=== PATIENT | female | born 1930 | race Caucasian/White ===

== ENCOUNTER 2017-09-01 17:12 | Observation (INO) ==
[2017-09-01] MEDS ORDERED: Lidocaine 1% 20 ML MDV INFILT STA (17:19)
--- NOTE | 2017-09-01 17:22 | Emergency Department Note ---
Disposition Clinical Impression: Fracture of wrist Qualifiers: Encounter type: initial encounter Fracture type: closed Laterality: right Qualified Code(s): S62.101A - Fracture of unspecified carpal bone, right wrist, initial encounter for closed fracture Fall Qualifiers: Encounter type: initial encounter Qualified Code(s): W19.XXXA - Unspecified fall, initial encounter Disposition: Admitted As Inpatient Condition: Fair Referrals: Juan Carlos Hurst DO [Primary Care Provider] - Time of Disposition: 19:13 Extremity Problem HPI - General Stated complaint: fall/fracture Time Seen by Provider: 09/01/17 17:18 Source: patient Mode of arrival: ambulatory Limitations: no limitations Nursing Notes Reviewed: Yes Vital Signs Reviewed: Yes - History of Present Illness HPI Narrative: Patient is an 87-year-old female who presents to [facility] ED with a chief complaint of right distal radius fracture status post fall. States she has bad knees and Parkinson's so she mistepped and fell at around 1: 30 this afternoon. Denies loss of consciousness. No blood thinning medications none. Patient has pain in the right shoulder as well as right wrist. She has a confirmed Colles' fracture that was done at [place] emergency department. There physician spoke with the on-call orthopedic surgeon Dr. Betancur who recommended that this wrist be reduced. She was transferred here for reduction of the fracture. Pt Subjective Complaint: extremity pain, extremity swelling Onset (ago): hour(s) Injury Location: right, upper extremity Pain Scale: 8 Quality: aching Radiation: none Improves with: nothing Worsens with: range of motion, palpation Associated symptoms: Denies: chest pain, shortness of breath, abdominal pain - Related Data Home Medications Medication Instructions Recorded Confirmed B12/Levomefolate Calcium/B-6 1 each PO DAILY 03/12/15 09/01/17 [Foltx Tablet] Cranberry 1,000 mg PO DAILY 03/12/15 09/01/17 Gabapentin [Neurontin] 300 mg PO HS 03/12/15 09/01/17 Losartan [Cozaar] 50 mg PO DAILY 03/12/15 09/01/17 Omeprazole [PriLOSEC] 20 mg PO DAILY 03/12/15 09/01/17 Primidone [Mysoline] 50 mg PO HS 03/12/15 09/01/17 Sertraline [Zoloft] 100 mg PO DAILY 03/12/15 09/01/17 Vitamin D3/Folic Acid [Ortho D 1 each PO DAILY 03/12/15 09/01/17 3,775 Unit-1 mg Cap] Buspirone HCl [Buspar] 5 mg PO BID 02/17/16 09/01/17 Carbidopa/Levodopa 25/100 [Sinemet 1 each PO TID 02/17/16 09/01/17 25/100] Raloxifene [Evista] 60 mg PO DAILY 02/17/16 09/01/17 Albuterol Sulfate [Albuterol 09/01/17 Inhaler] Ferrous Sulfate [Iron] 325 mg PO DAILY 09/01/17 09/01/17 Allergies Allergy/AdvReac Type Severity Reaction Status Date / Time clarithromycin Allergy Unknown See Verified 08/30/16 11:32 Comments propoxyphene [From Darvon] Allergy Hives Verified 08/30/16 11:32 aspirin [ASA] AdvReac Heartburn Verified 08/30/16 11:32 cephalexin [From Keflex] AdvReac Hives Verified 08/30/16 11:32 dextran 40 AdvReac Rash Verified 09/01/17 14:12 fluoxetine [From Prozac] AdvReac Numbness Verified 08/30/16 11:32 guaifenesin [From Humibid] AdvReac Hives Verified 08/30/16 11:32 All systems ED: reviewed and negative except as stated. Past Medical History - Past Medical History Attestation: Yes The following information was validated with the patient. Source: patient Medical history: Reports: arthritis, CVA, GERD, hypertension, other (Parkinson's ) Surgical history: Reports: breast surgery (Right breast lumpectomy), cancer surgery (Skin cancer excision), colostomy (For diverticulosis with primary reanastomosis) Psychiatric history: Reports: anxiety, depression MAKE UP GIRL history: Reports: no MAKE UP GIRL history - Social History Smoking Status: Never smoker Smokeless Tobacco Status: No Alcohol use: Reports: none Drug use: Reports: none Physical Exam - General Limitations: no limitations General appearance: alert, in no apparent distress - Head Head exam: atraumatic, normocephalic, normal inspection - Eye Eye exam: Present: normal appearance, PERRL, EOMI - ENT ENT exam: normal exam, normal oropharynx, mucous membranes moist - Neck Neck exam: Present: normal inspection, full ROM, trachea midline - Chest Chest inspection: Present: normal inspection, symmetric chest wall rise - Respiratory Respiratory exam: Present: normal lung sounds bilaterally - Cardiovascular Cardiovascular exam: Present: regular rate, normal rhythm, normal heart sounds - Abdominal Exam Abdominal exam: Present: soft, Non-Tender. Absent: tenderness, distention, guarding, rebound, rigidity - Expanded Upper Extremity Exam Shoulder exam: Present: tenderness Arm exam: Present: tenderness (Tenderness to the right upper arm) Forearm/Wrist exam: Present: tenderness, swelling, ecchymosis, deformity Vascular exam: Normal: capillary refill, radial pulse - Back Exam Back exam: Absent: vertebral tenderness - Neurological Exam Neurological exam: Present: alert, oriented X3 - Psychiatric Psychiatric exam: Present: normal affect, normal mood - Skin Skin exam: Present: warm, dry, intact, normal color Course Course Narrative: Patient seen and examined. Right upper extremity Marycarmen's fracture. A hematoma block was performed on the right dorsal surface of the wrist. Patient tolerated procedure well. There was good aspiration of hematoma blood and approximately 8 mL of lidocaine was infused. We will get postreduction x-ray as well as place a sugar tong splint. - Reevaluation(s) Reevaluation #1: Postreduction x-rays still show a comminuted intra-articular distal radius fracture. Discussed with Dr. Mckenna who plans to do surgery on her soon. I recommended follow-up outpatient initially. However when discussing with the patient, she requires a walker to steady herself due to her Parkinson's and without use of her right arm, there is worried that she is unsteady and will fall again. Discussed with Dr. Mckenna again who states he will take her to the OR tomorrow. He would like a CT of the wrist for operative planning. This has been ordered. We will also get preop labs/EKG. We will admit to hospitalist service. Time: 19:05 Vital Signs Temperature 97.8 F 09/01/17 17:29 Pulse Rate 72 09/01/17 17:29 Respiratory Rate 16 09/01/17 17:29 Blood Pressure 113/63 09/01/17 17:29 O2 Sat by Pulse Oximetry 95 09/01/17 17:29 Temperature 97.8 F 09/01/17 17:29 Pulse Rate 67 09/01/17 18:31 Respiratory Rate 16 09/01/17 18:31 Blood Pressure 110/56 09/01/17 18:31 O2 Sat by Pulse Oximetry 95 09/01/17 18:31 Oxygen Delivery Oxygen Delivery Room Air Procedures - Orthopedic Fracture Reduction Fracture #1 Consent Obtained: verbal consent Time Out Performed: Yes Side: right Fracture Reduction Location: radius ASA Classification: CLASS II-Mild systemic disease Analgesia: hematoma block Technique: direct manipulation Post Reduction X-rays Demonstrate: anatomical reduction Post-reduction neuro exam: intact, no change Post-reduction vascular exam: intact, no change Splint Applied: Yes Patient Tolerated Procedure: well, no complications - Orthopedic Splinting/Casting Injury #1 Side: right Upper Extremity Injury Location: forearm Upper Extremity Immobilizer: sugar tong splint Additional Comments: good capillary refill following splint placement. Extremity Problem, Nontraumati - Medical Records Medical records reviewed: Yes I reviewed the patient's medical records. - Radiology Data Radiology results reviewed: Yes I reviewed the patient's radiology results. Shoulder X-Ray 09/01/17 17:56 IMPRESSION: 1. Comminuted intra-articular fracture involving the base of the radius with dorsal angulation and translation of the fracture fragments. There is moderate regional soft tissue swelling. 2. Probable degenerative appearance in the medial portion of the right humeral neck; however, subtle impacted injury is not excluded. Osteopenia somewhat limits sensitivity. D/ / Panda Garibay / Panda Garibay Interpreting Provider: Panda Garibay Wrist X-Ray 09/01/17 17:56 IMPRESSION: 1. Comminuted intra-articular fracture involving the base of the radius with dorsal angulation and translation of the fracture fragments. There is moderate regional soft tissue swelling. 2. Probable degenerative appearance in the medial portion of the right humeral neck; however, subtle impacted injury is not excluded. Osteopenia somewhat limits sensitivity. D/ / Panda Garibay / Panda Garibay Interpreting Provider: Panda Garibay Cervical Spine CT 09/01/17 17:57 IMPRESSION: Small right scalp hematoma. No underlying skull vera fracture or acute intracranial abnormality. Multilevel degenerative changes in the cervical spine. No acute osseous abnormality. D/ / Alejandra Wyatt MD / Alejandra Wyatt MD Interpreting Provider: Alejandra Wyatt MD Head CT 09/01/17 17:57 IMPRESSION: Small right scalp hematoma. No underlying skull vera fracture or acute intracranial abnormality. Multilevel degenerative changes in the cervical spine. No acute osseous abnormality. D/ / Alejandra Wyatt MD / Alejandra Wyatt MD Interpreting Provider: Alejandra Wyatt MD - EKG Data EKG attestation: Yes I reviewed and interpreted this EKG. EKG results narrative: EKG done at 1850 shows normal sinus rhythm with a rate of [address] elevation or depression. Normal axis.
--- NOTE | 2017-09-01 18:53 | Emergency Department Note ---
Disposition Clinical Impression: Fracture of wrist Qualifiers: Encounter type: initial encounter Fracture type: closed Laterality: right Qualified Code(s): S62.101A - Fracture of unspecified carpal bone, right wrist, initial encounter for closed fracture Fall Qualifiers: Encounter type: initial encounter Qualified Code(s): W19.XXXA - Unspecified fall, initial encounter Disposition: Admitted As Inpatient Condition: Fair Referrals: Juan Carlos Hurst DO [Non-Partnered Physician] - Fall HPI - General Chief Complaint: ED Fall Stated Complaint: fall/fracture Time Seen by Provider: 09/01/17 17:18 Source: patient Mode of arrival: ambulatory Limitations: no limitations Nursing Notes Reviewed: Yes Vital Signs Reviewed: Yes - Related Data Home Medications Medication Instructions Recorded Confirmed B12/Levomefolate Calcium/B-6 1 each PO DAILY 03/12/15 09/01/17 [Foltx Tablet] Cranberry 1,000 mg PO DAILY 03/12/15 09/01/17 Gabapentin [Neurontin] 300 mg PO HS 03/12/15 09/01/17 Losartan [Cozaar] 50 mg PO DAILY 03/12/15 09/01/17 Omeprazole [PriLOSEC] 20 mg PO DAILY 03/12/15 09/01/17 Primidone [Mysoline] 50 mg PO HS 03/12/15 09/01/17 Sertraline [Zoloft] 100 mg PO DAILY 03/12/15 09/01/17 Vitamin D3/Folic Acid [Ortho D 1 each PO DAILY 03/12/15 09/01/17 3,775 Unit-1 mg Cap] Buspirone HCl [Buspar] 5 mg PO BID 02/17/16 09/01/17 Carbidopa/Levodopa 25/100 [Sinemet 1 each PO TID 02/17/16 09/01/17 25/100] Raloxifene [Evista] 60 mg PO DAILY 02/17/16 09/01/17 Albuterol Sulfate [Albuterol 09/01/17 Inhaler] Ferrous Sulfate [Iron] 325 mg PO DAILY 09/01/17 09/01/17 Allergies Allergy/AdvReac Type Severity Reaction Status Date / Time clarithromycin Allergy Unknown See Verified 08/30/16 11:32 Comments propoxyphene [From Darvon] Allergy Hives Verified 08/30/16 11:32 aspirin [ASA] AdvReac Heartburn Verified 08/30/16 11:32 cephalexin [From Keflex] AdvReac Hives Verified 08/30/16 11:32 dextran 40 AdvReac Rash Verified 09/01/17 14:12 fluoxetine [From Prozac] AdvReac Numbness Verified 08/30/16 11:32 guaifenesin [From Humibid] AdvReac Hives Verified 08/30/16 11:32 Fall PMH - Past Medical History Medical history: Reports: arthritis, CVA, GERD, hypertension, other (Parkinson's ) Surgical history: Reports: breast surgery (Right breast lumpectomy), cancer surgery (Skin cancer excision), colostomy (For diverticulosis with primary reanastomosis) Psychiatric history: Reports: anxiety, depression MACHINE FILLER SERVICER 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 - Social History Smoking Status: Never smoker Alcohol use: Reports: none Drug use: Reports: none Physical Exam - General Limitations: no limitations General appearance: alert, in no apparent distress Course Vital Signs Temperature 97.8 F 09/01/17 17:29 Pulse Rate 72 09/01/17 17:29 Respiratory Rate 16 09/01/17 17:29 Blood Pressure 113/63 09/01/17 17:29 O2 Sat by Pulse Oximetry 95 09/01/17 17:29 Temperature 97.8 F 09/01/17 17:29 Pulse Rate 67 09/01/17 18:31 Respiratory Rate 16 09/01/17 18:31 Blood Pressure 110/56 09/01/17 18:31 O2 Sat by Pulse Oximetry 95 09/01/17 18:31 Oxygen Delivery Oxygen Delivery Room Air Attestation Statement - Attestation Attestation: I, Nico Riggs, examined this patient and my medical decision-making was reviewed with the DOUGH PANNER/PA/Advanced Practice Nurse/Resident Physician. I agree with the documented findings, disposition and treatment plan as described except to the extent set forth below. 87-year-old female presents emergency Department with concerns of pain to the right wrist after fall. Patient states she has a history of Parkinson's, lost her balance that she was ambulating to the bathroom and fell striking her right outstretched hand. Patient also has pain to the right shoulder, right hip right knee. Patient was initially evaluated at [place] emergency department, x- ray of the right wrist showed a dorsally displaced distal radial fracture. The emergency physician there felt uncomfortable perform a hematoma block and thus sent her to the emergency department for further care and evaluation at [facility]. Hematoma block was performed and fracture was reduced after a discussion of risks and benefits with the patient and verbal consent obtained. Reviewing the note from the previous visit she did not receive a head CT, she is unable to give a good history regarding the fall. She also had pain on the right shoulder with our reevaluation. X-ray of the shoulder does not show acute fracture of the humerus. CT of the head and neck was negative for acute fracture or intracranial hemorrhage. Patient will be admitted to the hospital for further care and evaluation of her radial fracture as she will have increased difficulty with ambulation at home, lives with her alone for with the hospital. I spoke with Dr. Betancur who is comfortable as plan of action. She will likely receive surgery tomorrow and should be placed on nothing by mouth status after midnight.
[2017-09-01 19:34] LABS: Basophils # 0.1 K/mcL (0.0-0.2); Basophils % 0.5 %; Eosinophils # 0.1 K/mcL (0.0-0.6); Hematocrit 31.9 % (35.3-44.9); Hemoglobin 10.2 g/dL (11.5-15.4); Immature Granulocytes % 0.8 % (0-4); Lymphocytes # 1.2 K/mcL (0.6-4.6); Lymphocytes % 10.9 %; Mean Corpuscular Hemoglobin 30.4 pg (28.0-33.3); Mean Corpuscular Volume 94.9 fL (83.0-100.0); Mean Platelet Volume 11.2 fL (9.4-12.4); Monocytes # 0.7 K/mcL (0.0-1.3); Monocytes % 6.3 %; Neutrophils # 8.7 K/mcL (1.6-8.9); Platelet Count 130 K/mcL (140-400); Red Blood Count 3.36 M/mcL (3.82-4.97); Red Cell Distribution Width 14.5 % (11.5-14.5); Segmented Neutrophils % 80.5 %
[2017-09-01 19:55] LABS: Calcium 9.1 mg/dL (8.6-10.3); Potassium 5.5 mEq/L (3.5-5.1)
[2017-09-01 20:57] LABS: Prothrombin Time 10.7 Seconds (9.4-12.1)
[2017-09-01] MEDS ORDERED: Naloxone 0.4 MG/ML INJ IVP PRN (20:57)
[2017-09-01] MEDS ORDERED: Acetaminophen 325 MG TABLET PO PRN (20:57)
[2017-09-01] MEDS ORDERED: Primidone 50 MG TABLET PO SCH (21:00)
[2017-09-01 21:01] LABS: Activated Partial Thrombo Time 29.5 Seconds (26.0-36.0)
--- NOTE | 2017-09-01 21:08 | Internal Med History&Physical ---
Date of Encounter: 09/01/17 Time of Encounter: 21:06 Internal Medicine - H&P: HPI Chief complaint: Fall History of present illness: Ms. Kelley is a 87 year old female who presents with a mechanical fall leading to findings on the right wrist fracture, and right hip pain pending further investigation. At baseline she uses a Rollator, scooter all the time has been having recurrent falls in the last few months. Has history of parkinsonism. Today she was using a scooter to the bathroom when she got up a scooter she lost control and found to the bathroom floor while attempting to transfer. She fell on her right side of the body with trauma to the right hand, wrist and possibly right hip with right hip pain on range of motion movement. Initial investigation ER found a comminuted right wrist fracture. Case was discussed with Dr. Mckenna of orthopedics who plans to do surgery tomorrow. Of note the right hip pain has not been investigated with imaging and we would do screening x-rays for now and is pending to be reviewed. EKG done in the ED NSR rate of [address]/CT wrist RT wo con IMPRESSION: 1. Acute, comminuted impacted fracture of the distal radius with intra-articular extension of fracture lines. 2. Mildly displaced ulnar styloid fracture. 3. Severe osteopenia. 4. 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 5. Severe osteopenia which limits evaluation for subtle nondisplaced fractures. CT/CT head/brain wo con IMPRESSION: Small right scalp hematoma. No underlying skull vera fracture or acute intracranial abnormality. Multilevel degenerative changes in the cervical spine. No acute osseous abnormality. CT/CT cervical spine wo con IMPRESSION: Small right scalp hematoma. No underlying skull vera fracture or acute intracranial abnormality. Multilevel degenerative changes in the cervical spine. No acute osseous abnormality. XR/XR shoulder complete RT IMPRESSION: 1. Comminuted intra-articular fracture involving the base of the radius with dorsal angulation and translation of the fracture fragments. There is moderate regional soft tissue swelling. 2. Probable degenerative appearance in the medial portion of the right humeral neck; however, subtle impacted injury is not excluded. Osteopenia somewhat limits sensitivity. Past Med Surg Social Fam HX - Past Medical History Medical history: arthritis, CVA, GERD, hypertension, other (Parkinson's) Psychiatric history: anxiety, depression - Past Surgical History Surgical History: breast surgery (Right breast lumpectomy), cancer surgery ( Skin cancer excision), colostomy (For diverticulosis with primary reanastomosis) - Social History Smoking Status: Never smoker Smokeless Tobacco Status: No Alcohol use: none Drug use: none Internal Medicine - H&P: Meds B12/Levomefolate Calcium/B-6 [Foltx Tablet] 1 each PO DAILY 03/12/15 [History] Carbidopa/Levodopa 25/100 [Sinemet 25/100] 1 each PO TID 02/17/16 [History] Raloxifene [Evista] 60 mg PO DAILY 02/17/16 [History] Buspirone HCl [Buspar] 10 mg PO BID 09/01/17 [History] Cranberry 500 mg PO DAILY 09/01/17 [History] Ferrous Sulfate [Iron] 325 mg PO DAILY 09/01/17 [History] Furosemide [Lasix] 20 - 40 mg PO DAILY 09/01/17 [History] Gabapentin [Neurontin] 300 mg PO BID 09/01/17 [History] Losartan Potassium [Cozaar] 50 mg PO DAILY 09/01/17 [History] Omeprazole [PriLOSEC] 20 mg PO DAILY 09/01/17 [History] Potassium Chloride [Klor-Con 10] 10 meq PO DAILY 09/01/17 [History] Primidone [Mysoline] 50 mg PO HS 09/01/17 [History] Sertraline [Zoloft] 100 mg PO DAILY 09/01/17 [History] 3 Allergy/AdvReac Type Severity Reaction Status Date / Time clarithromycin Allergy Unknown See Verified 08/30/16 11:32 Comments propoxyphene [From Darvon] Allergy Hives Verified 08/30/16 11:32 aspirin [ASA] AdvReac Heartburn Verified 08/30/16 11:32 cephalexin [From Keflex] AdvReac Hives Verified 08/30/16 11:32 dextran 40 AdvReac Rash Verified 09/01/17 14:12 fluoxetine [From Prozac] AdvReac Numbness Verified 08/30/16 11:32 guaifenesin [From Humibid] AdvReac Hives Verified 08/30/16 11:32 All Systems PM: A 10-system review of systems was performed and is negative for pertinent findings except as documented above in the HPI. Review of systems: ROS 14 point review of systems reviewed as best as possible given presentation. Pertinent positive or negative as per HPI or otherwise reviewed as negative - Constitutional Vitals: Temp Pulse Resp BP Pulse Ox 98.1 F 67 18 122/61 98 09/01/17 21:00 09/01/17 21:00 09/01/17 21:00 09/01/17 21:00 09/01/17 21:00 Exam: General - AAO x 3 Psych - Appropriate affect/speech. No agitation Eyes - CLAIRE. Eye lids intact. No scleral icterus Heart - Sinus. RRR. S1 and S2 present. No added HS/murmurs appreciated. No elevated JVD appreciated. Lung - Adequate air entry b/l, No crackles/wheezes appreciated GI - Soft, non-tender. No hepatosplenomegaly/ascites. BS+ - No CVA/suprapubic tenderness or palpable bladder distension Skin - Intact. No rash/petechiae/ecchymosis. Warm extremities MSK - Right UE sling/bandaged, right hip pain , particularly on lifting above bed Internal Med - H&P Results - Labs CBC & Chem 7: 09/01/17 19:09 09/01/17 19:09 - Assessment and plan (1) Fracture of wrist Current Visit: Yes Status: Acute Assessment and plan: ED discussed with Dr Mckenna who plan for surgery in a.m NPO after MN IVF IV morphine, tramadol for pain Qualifiers: Encounter type: initial encounter Fracture type: closed Laterality: right Qualified Code(s): S62.101A - Fracture of unspecified carpal bone, right wrist, initial encounter for closed fracture (2) Contusion of right hip Current Visit: No Status: Acute Assessment and plan: right hip pain on review will check hip/pelvis XR to ensure no fracture and only contusion Qualifiers: Encounter type: initial encounter Qualified Code(s): S70.01XA - Contusion of right hip, initial encounter (3) ASHLEY (acute kidney injury) Current Visit: Yes Status: Acute Assessment and plan: IVF HyperK protocol trend BMP (4) Fall Current Visit: Yes Status: Acute Assessment and plan: PT/OT eval after surgery appears mechanical in nature Qualifiers: Encounter type: initial encounter Qualified Code(s): W19.XXXA - Unspecified fall, initial encounter (5) Parkinsons disease Current Visit: No Status: Chronic Assessment and plan: risk factor for falls (6) HTN (hypertension) Current Visit: Yes Status: Acute Assessment and plan: hold losartan due to hyperkalemia, ASHLEY Qualifiers: Hypertension type: essential hypertension Qualified Code(s): I10 - Essential (primary) hypertension (7) Scalp hematoma Current Visit: Yes Status: Acute Assessment and plan: watch for now Qualifiers: Encounter type: initial encounter Qualified Code(s): S00.03XA - Contusion of scalp, initial encounter - Time Spent With Patient Total time spent is greater than 50% in coordination of care (as documented) at patient's floor/unit and/or counseling patient:
[2017-09-01] MEDS: Carbidopa/Levodopa 25/100 TABLET PO SCH (22:49)
[2017-09-01] MEDS: 0.9 % Sodium Chloride 1,000 ML IVC SCH (22:50)
[2017-09-01] MEDS: Calcium Chloride 1,000 MG in 0.9 % Sodium Chloride 100 ML IVPB ONE (22:50)
[2017-09-01] MEDS: *HR* OxyCODONE Immed Rel 5 MG TABLET PO PRN (23:06)
[2017-09-01] MEDS: Gabapentin 300 MG CAPSULE PO SCH (23:06)
[2017-09-02 01:43] LABS: Basophils % 0.5 %; Eosinophils # 0.1 K/mcL (0.0-0.6); Hematocrit 31.9 % (35.3-44.9); Hemoglobin 10.5 g/dL (11.5-15.4); Immature Granulocytes % 0.6 % (0-4); Lymphocytes % 13.2 %; Mean Corpuscular HGB Conc 32.9 g/dL (31.6-35.5); Mean Corpuscular Hemoglobin 31.4 pg (28.0-33.3); Mean Corpuscular Volume 95.5 fL (83.0-100.0); Mean Platelet Volume 11.5 fL (9.4-12.4); Monocytes # 0.5 K/mcL (0.0-1.3); Neutrophils # 6.1 K/mcL (1.6-8.9); Platelet Count 117 K/mcL (140-400); Red Blood Count 3.34 M/mcL (3.82-4.97); Red Cell Distribution Width 14.4 % (11.5-14.5); Segmented Neutrophils % 78.7 %
[2017-09-02 02:04] LABS: Calcium 8.8 mg/dL (8.6-10.3); Potassium 4.8 mEq/L (3.5-5.1)
[2017-09-02] MEDS: 0.9 % Sodium Chloride 1,000 ML IVC SCH ×2 (03:33→21:51)
[2017-09-02] MEDS: Calcium Chloride 1,000 MG in 0.9 % Sodium Chloride 100 ML IVPB ONE (03:33)
[2017-09-02] MEDS: *HR* OxyCODONE Immed Rel 5 MG TABLET PO PRN ×3 (04:53→21:50)
[2017-09-02] MEDS ORDERED: *HR* Enoxaparin 30 MG/0.3 ML SYRINGE SQ SCH (06:00)
--- NOTE | 2017-09-02 06:58 | Orthopedic Consult Note ---
Date of Encounter: 09/02/17 Time of Encounter: 06:56 Assessment and Plan (1) Fracture of wrist Current Visit: Yes Status: Acute I did discuss the diagnosis in detail with the patient. She has a significantly comminuted and angulated distal radius fracture. Given her age these can sometimes be treated nonoperatively with reasonable results, however given the significant displacement and angulation of her particular injury I feel that she would benefit from reduction and fixation in order to realign and stabilize the right wrist. This is my recommendation. The risks discussed included but were not limited to stiffness, bleeding, infection, blood clots, damage to neurovascular structures, tendons, ligaments, and bone. Also discussed was the risk of continued symptoms and possible need for further procedures. I did discuss the anesthesia risks including stroke, heart attack, and . I did discuss the reasonable, foreseeable postoperative course with the patient. She is aware the risk of needing dorsal spanning fixation or external fixation. She is aware the risk of hardware failure, collapse, and tendon ruptures. She did wish to proceed and we will obtain informed consent. Due to the right hip pain and negative x-rays I will order an MRI to evaluate for occult fracture. We will plan on proceeding to the OR once medically stable. Qualifiers: Encounter type: initial encounter Fracture type: closed Laterality: right Qualified Code(s): S62.101A - Fracture of unspecified carpal bone, right wrist, initial encounter for closed fracture History of Present Illness HPI: Ms. Kelley is a 87 year old female who is currently admitted to the hospitalist with a significantly comminuted right distal radius fracture. She has parkinsonism at baseline and uses a scooter to get around. She is trying to transfer yesterday when she fell and sustained the injury. She is found to have the distal radius fracture at the [facility] and was transferred to our emergency department for closed reduction and was subsequently admitted for placement. I was consulted to assist in the evaluation and management of the right wrist. On my exam the patient is complaining of isolated pain to the right hip, low back and right wrist. She also says she has a headache. She denies any numbness, tingling, or other associated signs or symptoms. Symptoms are worse with movement and better with rest. No other modifying factors. Past Med Surg Social Fam HX - Past Medical History Medical history: arthritis, CVA, GERD, hypertension, other Psychiatric history: anxiety, depression - Past Surgical History Surgical History: breast surgery, cancer surgery, colostomy - Social History Smoking Status: Never smoker Smokeless Tobacco Status: No Alcohol use: none Drug use: none - Family History Mother Adopted: [place]: Lori Age: 58 Living Status: Age at : 58 Cause of : Cancer Hx Family Cardiac Disorders: No Hx Family Respiratory Disorders: No Hx Family Cancer: Yes (Lung) Hx Family GI Disorders: No Hx Family Genitourinary Disorders: No Hx Family Endocrine Disorder: No Hx Family Musculoskeletal Disorders: No Hx Family Neuromuscular Disorders: No Hx Family Neurologic Disorders: No Hx Family HEENT Disorders: No Hx Family Autoimmune Disorders: No Hx Family Reproductive Disorders: No Hx Family Psychosocial Disorders: No Hx Family Medical Disorders: No Medications and Allergies B12/Levomefolate Calcium/B-6 [Foltx Tablet] 1 each PO DAILY 03/12/15 [History] Carbidopa/Levodopa 25/100 [Sinemet 25/100] 1 each PO TID 02/17/16 [History] Raloxifene [Evista] 60 mg PO DAILY 02/17/16 [History] Buspirone HCl [Buspar] 10 mg PO BID 09/01/17 [History] Cranberry 500 mg PO DAILY 09/01/17 [History] Ferrous Sulfate [Iron] 325 mg PO DAILY 09/01/17 [History] Furosemide [Lasix] 20 - 40 mg PO DAILY 09/01/17 [History] Gabapentin [Neurontin] 300 mg PO BID 09/01/17 [History] Losartan Potassium [Cozaar] 50 mg PO DAILY 09/01/17 [History] Omeprazole [PriLOSEC] 20 mg PO DAILY 09/01/17 [History] Potassium Chloride [Klor-Con 10] 10 meq PO DAILY 09/01/17 [History] Primidone [Mysoline] 50 mg PO HS 09/01/17 [History] Sertraline [Zoloft] 100 mg PO DAILY 09/01/17 [History] 3 Allergy/AdvReac Type Severity Reaction Status Date / Time clarithromycin Allergy Unknown See Verified 08/30/16 11:32 Comments propoxyphene [From Darvon] Allergy Hives Verified 08/30/16 11:32 aspirin [ASA] AdvReac Heartburn Verified 08/30/16 11:32 cephalexin [From Keflex] AdvReac Hives Verified 08/30/16 11:32 dextran 40 AdvReac Rash Verified 09/01/17 14:12 fluoxetine [From Prozac] AdvReac Numbness Verified 08/30/16 11:32 guaifenesin [From Humibid] AdvReac Hives Verified 08/30/16 11:32 All Systems Reviewed: Constitutional and musculoskeletal systems were reviewed and are negative unless otherwise stated in history of present illness. Physical Exam - Constitutional Vitals: Temp Pulse Resp BP Pulse Ox 98.5 F 75 16 132/76 93 09/02/17 06:30 09/02/17 06:30 09/02/17 06:30 09/02/17 06:30 09/02/17 06:30 Constitutional -Vitals reviewed -The patient is well developed and well nourished. -Mood is pleasant. -The patient is well groomed. Psychiatric -The patient is fully alert and oriented x 3. Respiratory: -Respiratory effort normal Abdomen: -Soft abdomen -Non tender -Non distended: Left upper extremity: -No deformities. The overlying skin is intact. No obvious signs of acute trauma. -No tenderness to palpation throughout. -No significant pain with passive motion of the shoulder, elbow, wrist, and fingers within the limits of the bed. -Able to make an "OK" sign, cross the index and long fingers, and extend the thumb. -Sensation grossly intact to light touch throughout the median, radial, and ulnar distributions. -Radial pulse is present; Fingers have good capillary refill. Right upper extremity: -Extremity is placed in a sugar tong splint. -Fingers distal to the splint are exposed and without significant swelling. -She grossly flexes and extends them. -The fingertips are all grossly sensate and well-perfused. -No pain with passive motion of the right shoulder. Left lower extremity: -No deformities. The overlying skin is intact. No obvious signs of acute trauma. -No tenderness to palpation throughout. -No pain with passive motion of the hip, knee, ankle, and toes within the limits of the bed. -No pain with axial loading of the thigh. -Able to dorsiflex and plantarflex the ankle and toes. -Sensation is grossly intact to light touch throughout the sural, saphenous, superficial peroneal, and deep peroneal distributions. -Toes have good capillary refill. Right lower extremity: -No deformities. The overlying skin is intact. No obvious signs of acute trauma. -No tenderness to palpation throughout. -The patient does have pain with motion of the right hip which she says mostly refers to her back but does endorse some groin pain. -No pain with passive motion of knee, ankle, and toes within the limits of the bed. -No pain with axial loading of the thigh. -Able to dorsiflex and plantarflex the ankle and toes. -Sensation is grossly intact to light touch throughout the sural, saphenous, superficial peroneal, and deep peroneal distributions. -Toes have good capillary refill. Diagnostic Imaging: I did personally review and interpret x-rays of the right hip do not show any definite fractures. X-rays of the right wrist and CT scan of the right wrist do demonstrate a significantly comminuted and significantly angulated distal radius fracture with apex volar angulation and with intra-articular extension. CT of the head and neck does show a scalp hematoma. Results - Labs Result Diagrams: 09/02/17 01:14 09/02/17 01:14 Labs: Abnormal lab results RBC 3.34 M/mcL (3.82-4.97) L 09/02/17 01:14 Hgb 10.5 g/dL (11.5-15.4) L 09/02/17 01:14 Hct 31.9 % (35.3-44.9) L 09/02/17 01:14 Plt Count 117 K/mcL (140-400) L 09/02/17 01:14 Chloride 109 mEq/L (98-107) H 09/02/17 01:14 Carbon Dioxide 18 mEq/L (23-29) L 09/02/17 01:14 BUN 77 mg/dL (8-23) H 09/02/17 01:14 Creatinine 2.38 mg/dL (0.60-1.20) H 09/02/17 01:14 Est GFR ( Amer) 23 (> 60) L 09/02/17 01:14 Est GFR (Non-Af Amer) 19 (> 60) L 09/02/17 01:14 BUN/Creatinine Ratio 32 (6-26) H 09/02/17 01:14 Glucose 132 mg/dL (70-105) H 09/02/17 01:14 Calculated Osmolality 313 (280-300) H 09/02/17 01:14 H & H 09/02/17 Range/Units 01:14 Hgb 10.5 L (11.5-15.4) g/dL Hct 31.9 L (35.3-44.9) % All other labs normal. Consult Discharge Plan - Plan
[2017-09-02] MEDS ORDERED: 0.9 % Sodium Chloride 1,000 ML IVC ONE (07:32)
[2017-09-02] MEDS ORDERED: 0.9 % Sodium Chloride 1,000 ML IVC SCH (07:45)
[2017-09-02] MEDS: traMADol 50 MG TABLET PO PRN ×2 (08:41→15:12)
[2017-09-02] MEDS: Carbidopa/Levodopa 25/100 TABLET PO SCH ×3 (08:42→21:50)
[2017-09-02] MEDS: Gabapentin 300 MG CAPSULE PO SCH ×2 (08:42→21:51)
--- NOTE | 2017-09-02 08:47 | Internal Med Progress Note ---
Date of Encounter: 09/02/17 Time of Encounter: 08:44 - Assessment and plan (1) Fracture of wrist Current Visit: Yes Status: Acute Assessment and plan: Orthopedics consulted; appreciate input. Plan for surgery today. Continue oxycodone and tramadol for pain. Qualifiers: Encounter type: initial encounter Fracture type: closed Laterality: right Qualified Code(s): S62.101A - Fracture of unspecified carpal bone, right wrist, initial encounter for closed fracture (2) Contusion of right hip Current Visit: No Status: Inactive Assessment and plan: Orthopedics consulted; appreciate input. No fracture on x-ray. MRI pending. Pain control as per above. Qualifiers: Encounter type: initial encounter Qualified Code(s): S70.01XA - Contusion of right hip, initial encounter (3) Scalp hematoma Current Visit: Yes Status: Acute Assessment and plan: Pain control as per above. Monitor for signs of intracranial bleed. Qualifiers: Encounter type: initial encounter Qualified Code(s): S00.03XA - Contusion of scalp, initial encounter (4) ASHLEY (acute kidney injury) Current Visit: Yes Status: Acute Assessment and plan: Slowly improving. Give another bolus and then maintenance IVF. Recheck BMP in AM. (5) Parkinsons disease Current Visit: No Status: Chronic Assessment and plan: Fall precautions. Continue home medications. (6) Fall Current Visit: Yes Status: Acute Assessment and plan: PT/OT evaluation after surgery. Qualifiers: Encounter type: initial encounter Qualified Code(s): W19.XXXA - Unspecified fall, initial encounter (7) HTN (hypertension) Current Visit: Yes Status: Chronic Assessment and plan: Normotensive at this time. Hold losartan due to hyperkalemia and ASHLEY. Monitor vitals closely. Qualifiers: Hypertension type: essential hypertension Qualified Code(s): I10 - Essential (primary) hypertension (8) DVT prophylaxis Current Visit: Yes Status: Acute Assessment and plan: Hold anticoagulation due to recent fall with multiple injuries and plan for surgery today. Start SCDs. - Time Spent With Patient Total time spent is greater than 50% in coordination of care (as documented) at patient's floor/unit and/or counseling patient: - Subjective Interval history: Patient had no acute events overnight. She just returned from her right hip MRI. She states that she still has significant pain in her right wrist and right hip. She also has dry mouth. She denies chest pain, SOB, abdominal pain , nausea, vomiting, fever, or chills. She has no other complaints at this time. - Constitutional Vitals: Temp Pulse Resp BP Pulse Ox 98.5 F 75 16 132/76 93 09/02/17 06:30 09/02/17 06:30 09/02/17 06:30 09/02/17 06:30 09/02/17 06:30 General appearance: Present: cooperative, mild distress (Due to pain), A&O X 3, pleasant, answers questions appropriately - Respiratory Respiratory exam: Present: CTAB. Absent: accessory muscle use, rales, rhonchi, wheezes Additional comments: Normal WOB - Cardiovascular Cardiovascular exam: Present: RRR, +S1, +S2. Absent: diastolic murmur, gallop, rubs, systolic murmur Additional comments: No BLE edema - GI/Abdominal GI/Abdominal exam: Present: normal bowel sounds, soft. Absent: distended, hepatomegaly, mass, splenomegaly, tenderness - Extremities Exam Additional comments: Right arm/wrist in bandaging with decreased ROM, moderate TTP over right hip - Psychiatric Psychiatric exam: Present: normal affect, normal mood. Absent: agitated, anxious, depressed - Skin Skin exam: Present: dry, intact, warm. Absent: cyanosis, rash Internal Medicine: Result - Labs CBC & Chem 7: 09/02/17 01:14 09/02/17 01:14 Labs: Short CBC 09/02/17 Range/Units 01:14 WBC 7.8 (4.3-11.1) K/mcL Hgb 10.5 L (11.5-15.4) g/dL Hct 31.9 L (35.3-44.9) % Plt Count 117 L (140-400) K/mcL Neutrophils # 6.1 (1.6-8.9) K/mcL BMP 09/02/17 01:14 Sodium 139 Potassium 4.8 Chloride 109 H Carbon Dioxide 18 L BUN 77 H Creatinine 2.38 H Glucose 132 H Calcium 8.8 - ABG Interpretation ABG results: PT/INR, D-dimer PT 10.7 Seconds (9.4-12.1) 09/01/17 20:36 - VTE Documentation of Mechanical Device: Intermittent pneumatic compression device Consult Discharge Plan - Plan Referrals: Stiltner,Juan Carlos D, [Primary Care Provider] -
[2017-09-02] MEDS ORDERED: NON-FORMULARY MEDICATION 1 EACH EACH (Losartan Potassium [Cozaar] 50 MG) PO SCH (09:00)
--- NOTE | 2017-09-02 14:49 | Electrocardiograph Report ---
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
--- NOTE | 2017-09-02 15:29 | Anesthesia Evaluation PreOp ---
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, Other (peripheral neuropathy mary LE, anxiety, depression, parkinson's) Other Medical History: Renal (ASHLEY) Anesthesia History: No Prior Anesthetic Complications, Past Anesthesia (bowel resection, colostomy) Alcohol Use: none Drug use: none Medications and Allergies B12/Levomefolate Calcium/B-6 [Foltx Tablet] 1 each PO DAILY 03/12/15 [History] Carbidopa/Levodopa 25/100 [Sinemet 25/100] 1 each PO TID 02/17/16 [History] Raloxifene [Evista] 60 mg PO DAILY 02/17/16 [History] Buspirone HCl [Buspar] 10 mg PO BID 09/01/17 [History] Cranberry 500 mg PO DAILY 09/01/17 [History] Ferrous Sulfate [Iron] 325 mg PO DAILY 09/01/17 [History] Furosemide [Lasix] 20 - 40 mg PO DAILY 09/01/17 [History] Gabapentin [Neurontin] 300 mg PO BID 09/01/17 [History] Losartan Potassium [Cozaar] 50 mg PO DAILY 09/01/17 [History] Omeprazole [PriLOSEC] 20 mg PO DAILY 09/01/17 [History] Potassium Chloride [Klor-Con 10] 10 meq PO DAILY 09/01/17 [History] Primidone [Mysoline] 50 mg PO HS 09/01/17 [History] Sertraline [Zoloft] 100 mg PO DAILY 09/01/17 [History] 3 Allergy/AdvReac Type Severity Reaction Status Date / Time clarithromycin Allergy Unknown See Verified 08/30/16 11:32 Comments propoxyphene [From Darvon] Allergy Hives Verified 08/30/16 11:32 aspirin [ASA] AdvReac Heartburn Verified 08/30/16 11:32 cephalexin [From Keflex] AdvReac Hives Verified 08/30/16 11:32 dextran 40 AdvReac Rash Verified 09/01/17 14:12 fluoxetine [From Prozac] AdvReac Numbness Verified 08/30/16 11:32 guaifenesin [From Humibid] AdvReac Hives Verified 08/30/16 11:32 - Meds/Allergy Pre-op Review Medications Reviewed: Yes Allergies Reviewed: Yes Beta Blockers on Current Med List: No Anesthesia Results - Labs 09/02/17 01:14 09/02/17 01:14 - Imaging EKG: report reviewed (09/01 SR) Anesthesia Exam Vital Signs/O2 Sat, Most Current Temp Pulse Resp BP Pulse Ox 99.0 F 89 16 127/75 98 09/02/17 14:45 09/02/17 14:45 09/02/17 14:45 09/02/17 14:45 09/02/17 14:45 Weight: 71kg NPO (# of Hours): >8 - HEENT Pupil (Motor): Pupils equal, EOMI - 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
[2017-09-02] MEDS ORDERED: Bupivacaine/EPI 1:200k 0.5%PF 30 ML VIAL ONE (16:44)
[2017-09-02] MEDS ORDERED: *HR* FentaNYL (PF) 100 MCG/2 ML VIAL ONE (16:50)
[2017-09-02] MEDS ORDERED: *HR* Propofol 200 MG/20 ML VIAL IVP ONE ×2 (16:51→18:03)
[2017-09-02] MEDS ORDERED: ROPIVACAINE HCL/PF 0.5% 30 ML VIAL ONE (16:59)
[2017-09-02] MEDS ORDERED: ceFAZolin 2,000 MG in 0.9 % Sodium Chloride 100 ML IVPB ONE ×2 (17:20→19:29)
--- NOTE | 2017-09-02 17:38 | Anesthesia Procedures ---
Date of Encounter: 09/02/17 Time of Encounter: 17:37 Procedures: Anesthesia - Nerve Block Procedure Date: 09/02/17 Time: 17:37 Allergies/Adv Reactions: multiple Pre-op Diagnosis: right distal radius fx Surgical Procedure: orif right distal radius Checklist: Correct Patient Identifier, Correct procedure, History checked Correct side: Right Blood Thinner: No Monitor Applied: EKG, BP, Pulse Oximetry Supplemental Oxygen via Nasal Cannula (L/min): 2 Sedation: Fentanyl (mcg): 50 Indication: Primary Anesthesia (request per surgeon. with mac.) Pre-op Neuro Deficits: No Block Type: Infraclavicular Catheter placed: No Sterile Technique: Yes Ultrasound used: Yes Anatomy identified: Yes Visual spread of Local: Yes Neuro Stimulation: Yes Nerve Stimulator Range: >0.4 - 0.6 mA Blood on Needle Aspiration: No Smooth Injection of Local: Yes Pain with Injection of Local: No Prep: Chlorhexadine Needle: 22 x 50 mm Stimuplex Local: Ropivacaine (0.5%) Volume (cc): 30 Number of Attempts: 1 Complications: None/effective block Vitals: Vital Signs/O2 Sat/Glucose, Most Current Temp Pulse Resp BP Pulse Ox 09/02/17 14:45 99.0 F 89 16 127/75 98 Comments: pt tolerated procedure well. no complications. vss.
[2017-09-02] MEDS ORDERED: Ondansetron 4 MG/2 ML VIAL ONE (17:41)
[2017-09-02] MEDS ORDERED: *HR* PHENYLEPHRINE 1,000 MCG/10 ML SYRINGE IVP ONE (18:02)
--- NOTE | 2017-09-02 19:05 | Anesthesia Evaluation Post Op ---
Date of Encounter: 09/02/17 Time of Encounter: 19:10 - Vital Signs Vital Signs: Vital Signs/O2 Sat/Glucose, Most Current Temp Pulse Resp BP Pulse Ox 09/02/17 18:57 80 14 133/74 96 09/02/17 18:47 81 14 135/72 96 09/02/17 18:37 100.0 F H 94 16 144/78 92 09/02/17 17:15 85 139/74 96 09/02/17 17:00 82 139/74 96 - Lungs Lungs: Clear Ascult./Percussion - Airway Airway: Non-obstructed - Cardiovascular Regular Rate - Mental Status Mental Status: Alert & Oriented, Answers Appropriately - Pain Pain Scale: 0 - Nausea Vomiting Nausea Vomiting: Not Present - Hydration Hydration: Ice chips - Discharge PostOp Status: Transfer Patient to floor
[2017-09-02] MEDS ORDERED: Naloxone 0.4 MG/ML INJ IVP PRN (19:29)
[2017-09-02] MEDS ORDERED: Acetaminophen 325 MG TABLET PO PRN (19:29)
[2017-09-02] MEDS: Primidone 50 MG TABLET PO SCH (21:51)
[2017-09-02] MEDS: Clindamycin 900 MG/50 ML 900 MG/50 ML IV.SOLN IVPB SCH (23:55)
[2017-09-03 01:06] LABS: Bilirubin,Urine Negative (Negative); Blood,Urine Small (Negative); Clarity,Urine Turbid (Clear); Color,Urine Yellow (Yellow); Glucose,Urine (UA) Normal (Normal); Ketones,Urine Negative (Negative); Leukocyte Esterase,Urine Large (Negative); Nitrite,Urine Negative (Negative); Protein,Urine 30 mg/dL (Neg-Trace); Specific Gravity,Urine 1.015 (1.010-1.025); Urobilinogen,Urine Normal (Normal)
[2017-09-03 01:09] LABS: Bacteria,Urine Many per hpf (None-Few); Hyaline Casts,Urine None Seen per lpf (None-Few); Squamous Epithelial Cell,Urine Many per lpf (None-Few); WBC,Urine TNTC per hpf (0-3)
[2017-09-03] MEDS: traMADol 50 MG TABLET PO PRN ×3 (03:20→17:52)
[2017-09-03 03:37] LABS: Basophils % 0.5 %
[2017-09-03 03:39] LABS: Eosinophils # 0.2 K/mcL (0.0-0.6); Eosinophils % 2.5 %; Hematocrit 26.7 % (35.3-44.9); Hemoglobin 8.7 g/dL (11.5-15.4); Immature Granulocytes % 0.5 % (0-4); Immature Platelets 4.3 % (1.1-6.1); Lymphocytes # 0.9 K/mcL (0.6-4.6); Lymphocytes % 13.6 %; Mean Corpuscular HGB Conc 32.6 g/dL (31.6-35.5); Mean Corpuscular Hemoglobin 31.6 pg (28.0-33.3); Mean Corpuscular Volume 97.1 fL (83.0-100.0); Mean Platelet Volume 11.2 fL (9.4-12.4); Monocytes # 0.6 K/mcL (0.0-1.3); Monocytes % 8.6 %; Neutrophils # 4.8 K/mcL (1.6-8.9); Platelet Count 102 K/mcL (140-400); Red Blood Count 2.75 M/mcL (3.82-4.97); Red Cell Distribution Width 14.4 % (11.5-14.5); Segmented Neutrophils % 74.3 %
[2017-09-03 03:53] LABS: Calcium 8.5 mg/dL (8.6-10.3)
[2017-09-03] MEDS: *HR* Enoxaparin 30 MG/0.3 ML SYRINGE SQ SCH (05:08)
[2017-09-03] MEDS: *HR* OxyCODONE Immed Rel 5 MG TABLET PO PRN ×3 (05:08→21:03)
--- NOTE | 2017-09-03 07:05 | Orthopedic Operative Note ---
Date of procedure: 09/03/17 Procedure: OPERATIVE REPORT DATE OF PROCEDURE: 09/02/2017 SURGEON: Delroy Mckenna MD RUBBERIZING MECHANIC(S): There were no assistants PREOPERATIVE DIAGNOSIS: Right distal radius fracture, intra-articular with more than 2 articular fragments POSTOPERATIVE DIAGNOSIS: Same PROCEDURE: Open reduction and internal fixation of the right distal radius ANESTHESIA: Block with sedation PREOPERATIVE ANTIBIOTICS: 2 g of Ancef ESTIMATED BLOOD LOSS: 1 milliliters IMPLANTS: [employer] Geminus volar locking distal radius plate PREOPERATIVE NOTE AND INDICATIONS: This patient is an 87-year-old female who sustained a comminuted and displaced right distal radius fracture. She is admitted for surgical intervention. I recommendation was for reduction and fixation in order to realign and stabilize the right distal radius. The surgical plan was discussed with the patient. The risks, benefits, alternatives, and potential complications of this procedure were discussed with the patient including injury to veins, arteries, nerves, tendons, ligaments, and bone. Also discussed were the risks of infection, bleeding, pain, blood clots, the possible need for a blood transfusion, the possible need for further procedures, heart attack, stroke, and . Additional risks include malunion , nonunion, loss of fixation. All of this was explained in simple terms, and the patient verbalized understanding and wished to proceed. Consent was given to proceed with surgery. PROCEDURE: The patient was seen in the preoperative holding area where the identify and the consent were confirmed. The right wrist was marked. Final questions were answered. The block was administered by the anesthesiologist. The patient was brought back to the operating room and placed supine on the operating room table. A huddle was performed with the patient and all vital surgical team members confirming patient identity, the correct procedure, and the correct operative site. Sedation was administered. The right upper extremity was prepped and draped in the usual sterile fashion. A surgical time out was performed immediately preceding the incision with all personnel in the operating room to confirm patient identity, the correct operative site and extremity, correct radiographic studies, availability of appropriate surgical equipment, and agreement on the planned procedure. A volar Obed incision was made and dissection proceeded carefully through the subcutaneous tissue. The FCR was reflected ulnarly as well as the contents of the volar forearm. The radial artery was reflected radially. A tenotomy was performed of the brachioradialis. The fracture was easily reduced and the definitive plate was placed and fixed distally with smooth pegs and proximally with a combination of cortical and locking screws. The extension plate was placed as there was a small volar marginal fragment. X-rays confirmed good reduction and good placement of the hardware. The wound was copiously irrigated and the incision was closed with interrupted nylon stitches. The instrument, sponge, and needle counts were correct after wound closure. POST OPERATIVE PLAN: Weight Bearing: Nonweightbearing to the right upper extremity. DVT Prophylaxis: Per the hospitalist Activity: Avoid aggressive activities with the right upper extremity. Wound Care: Keep the dressing and splint clean, dry, and intact. Pain Control: Per the hospitalist Was there an parking assistant present: No Estimated blood loss (cc): 1
--- NOTE | 2017-09-03 07:08 | Orthopedics Progress Note ---
Date of Encounter: 09/03/17 Time of Encounter: 07:06 - Assessment and Plan (1) Fracture of wrist Current Visit: Yes Status: Acute Qualifiers: Encounter type: initial encounter Fracture type: closed Laterality: right Qualified Code(s): S62.101A - Fracture of unspecified carpal bone, right wrist, initial encounter for closed fracture Subjective Interval history: S: The patient is resting in bed. Pain control to the right wrist. O: Afebrile on the vital signs are stable Right upper extremity and postoperative splint She can grossly flex and extend the exposed digits which are mildly puffy. Exposed digits are sensate and well-perfused. The MRI of the right hip did not demonstrate any fractures of the proximal femur. There are insufficiency fractures of the sacrum and pubic rami A: Post open reduction and internal fixation of the right distal radius Sacral and pubic rami insufficiency fractures P: Nonweightbearing to the right upper extremity. Keep the splint and dressing clean, dry, and intact. Digital motion exercises. PT and OT consults Nonoperative management for the pelvic insufficiency fractures Weightbearing as tolerated on the bilateral lower extremities. Objective Vital signs: Vital Signs Temp Pulse Resp BP Pulse Ox 09/03/17 06:17 98.9 F 90 16 128/61 93 09/03/17 03:37 98.3 F 80 16 139/82 94 09/03/17 00:26 15 138/83 92 09/02/17 23:30 12 138/83 96 09/02/17 22:57 98.3 F 85 15 138/83 98 09/02/17 21:46 98.5 F 85 15 134/61 93 09/02/17 20:44 98.6 F 85 14 137/79 98 09/02/17 20:11 99.2 F 88 14 148/78 97 09/02/17 19:42 98.5 F 83 14 155/74 96 09/02/17 19:07 100.3 F H 80 14 134/72 97 09/02/17 18:57 80 14 133/74 96 09/02/17 18:47 81 14 135/72 96 09/02/17 18:37 100.0 F H 94 16 144/78 92 09/02/17 17:15 85 139/74 96 09/02/17 17:00 82 139/74 96 09/02/17 14:45 99.0 F 89 16 127/75 98 09/02/17 11:35 99.0 F 85 16 151/80 100 Intake and Output 09/02/17 09/02/17 09/03/17 15:59 23:59 07:59 Intake Total 350 / 350 50 / 50 Output Total Balance 349 / 349 50 / 50 Intake: IV Fluids 50 / 50 Cleocin Premix 900 MG/50 ML 900 50 / 50 mg In 50 ml @ 50 mls/hr IVPB Q8HR [facility] Rx#:[id number] Oral 350 / 350 Output: Estimated Blood Loss Other: # Voids 1 # Urine Diapers 1 1 1 - Labs CBC & BMP: 09/03/17 03:15 09/03/17 03:15 Labs: Abnormal lab results RBC 2.75 M/mcL (3.82-4.97) L 09/03/17 03:15 Hgb 8.7 g/dL (11.5-15.4) L D 09/03/17 03:15 Hct 26.7 % (35.3-44.9) L 09/03/17 03:15 Plt Count 102 K/mcL (140-400) L 09/03/17 03:15 Sodium 147 mEq/L (136-145) H 09/03/17 03:15 Chloride 116 mEq/L (98-107) H 09/03/17 03:15 Carbon Dioxide 22 mEq/L (23-29) L 09/03/17 03:15 BUN 53 mg/dL (8-23) H 09/03/17 03:15 Creatinine 1.66 mg/dL (0.60-1.20) H 09/03/17 03:15 Est GFR ( Amer) 35 (> 60) L 09/03/17 03:15 Est GFR (Non-Af Amer) 29 (> 60) L 09/03/17 03:15 BUN/Creatinine Ratio 32 (6-26) H 09/03/17 03:15 Glucose 112 mg/dL (70-105) H 09/03/17 03:15 Calculated Osmolality 319 (280-300) H 09/03/17 03:15 Calcium 8.5 mg/dL (8.6-10.3) L 09/03/17 03:15 Urine Clarity Turbid (Clear) A 09/03/17 00:55 Urine Protein 30 mg/dL (Neg-Trace) H 09/03/17 00:55 Urine Blood Small (Negative) H 09/03/17 00:55 Ur Leukocyte Esterase Large (Negative) H 09/03/17 00:55 Urine Microscopic RBC 5-15 per hpf (0-3) H 09/03/17 00:55 Urine Microscopic WBC TNTC per hpf (0-3) H 09/03/17 00:55 Ur Squamous Epith Cells Many per lpf (None-Few) H 09/03/17 00:55 Urine Bacteria Many per hpf (None-Few) H 09/03/17 00:55 Ur Culture Indicated? NO. (NO) A 09/03/17 00:55 - VTE Documentation of Mechanical Device: Venous foot pump, device Consult Discharge Plan - Plan Referrals: Juan Carlos Hurst DO [Primary Care Provider] -
[2017-09-03] MEDS: Gabapentin 300 MG CAPSULE PO SCH ×2 (08:20→22:37)
[2017-09-03] MEDS: Carbidopa/Levodopa 25/100 TABLET PO SCH ×3 (08:20→22:37)
[2017-09-03] MEDS: Clindamycin 900 MG/50 ML 900 MG/50 ML IV.SOLN IVPB SCH (08:21)
[2017-09-03] MEDS: 0.9 % Sodium Chloride 1,000 ML IVC SCH (08:38)
--- NOTE | 2017-09-03 09:08 | Internal Med Progress Note ---
Date of Encounter: 09/03/17 Time of Encounter: 09:06 - Assessment and plan (1) Fracture of wrist Current Visit: Yes Status: Acute Assessment and plan: Orthopedics consulted; appreciate input. POD #0 s/p open reduction and internal fixation of the right distal radius. Continue oxycodone and tramadol for pain. PT/OT consulted for therapy and determination of rehab needs. Qualifiers: Encounter type: initial encounter Fracture type: closed Laterality: right Qualified Code(s): S62.101A - Fracture of unspecified carpal bone, right wrist, initial encounter for closed fracture (2) Contusion of right hip Current Visit: Yes Status: Acute Assessment and plan: Orthopedics consulted; appreciate input. Sacral and pubic rami insufficiency fractures. Pain control and PT/OT as per above. Qualifiers: Encounter type: initial encounter Qualified Code(s): S70.01XA - Contusion of right hip, initial encounter (3) Scalp hematoma Current Visit: Yes Status: Acute Assessment and plan: Pain control as per above. Monitor for signs of intracranial bleed. Qualifiers: Encounter type: initial encounter Qualified Code(s): S00.03XA - Contusion of scalp, initial encounter (4) ASHLEY (acute kidney injury) Current Visit: Yes Status: Acute Assessment and plan: Improving. Sodium increasing, so will switch to 1/2 NS at 75 ml/hr. Recheck BMP in AM. (5) Parkinsons disease Current Visit: Yes Status: Chronic Assessment and plan: Fall precautions. Continue home medications. (6) Fall Current Visit: Yes Status: Acute Assessment and plan: PT/OT consulted as per above. Qualifiers: Encounter type: initial encounter Qualified Code(s): W19.XXXA - Unspecified fall, initial encounter (7) HTN (hypertension) Current Visit: Yes Status: Chronic Assessment and plan: Normotensive at this time. Hold losartan due to hyperkalemia and ASHLEY. Monitor vitals closely. Qualifiers: Hypertension type: essential hypertension Qualified Code(s): I10 - Essential (primary) hypertension (8) Acute cystitis with hematuria Current Visit: Yes Status: Acute Assessment and plan: Start rocephin 1 gram IVPB daily. Follow up on urine culture and sensitivities. (9) DVT prophylaxis Current Visit: Yes Status: Acute Assessment and plan: Hold anticoagulation due to recent fall with multiple injuries. Continue SCDs. - Time Spent With Patient Total time spent is greater than 50% in coordination of care (as documented) at patient's floor/unit and/or counseling patient: less than 15 minutes - Subjective Interval history: Patient had no acute events overnight. She is POD #0 s/p open reduction and internal fixation of the right distal radius. She states that she still has significant pain in her right wrist and right hip. She denies chest pain, SOB, abdominal pain, nausea, vomiting, fever, or chills. She has no other complaints at this time. - Constitutional Vitals: Temp Pulse Resp BP Pulse Ox 98.9 F 90 16 128/61 93 09/03/17 06:17 09/03/17 06:17 09/03/17 06:17 09/03/17 06:17 09/03/17 06:17 General appearance: Present: cooperative, A&O X 3, pleasant, no acute distress, answers questions appropriately Exam: Somwhat somnolent, but wakes up and responds appropriately - Respiratory Respiratory exam: Present: CTAB. Absent: accessory muscle use, rales, rhonchi, wheezes Additional comments: Normal WOB - Cardiovascular Cardiovascular exam: Present: RRR, +S1, +S2. Absent: diastolic murmur, gallop, rubs, systolic murmur Additional comments: No BLE edema - GI/Abdominal GI/Abdominal exam: Present: normal bowel sounds, soft. Absent: distended, hepatomegaly, mass, splenomegaly, tenderness - Psychiatric Psychiatric exam: Present: normal affect, normal mood. Absent: agitated, anxious, depressed - Skin Skin exam: Present: dry, warm. Absent: cyanosis, erythema, rash Internal Medicine: Result - Labs CBC & Chem 7: 09/03/17 03:15 09/03/17 03:15 Labs: Short CBC 09/03/17 Range/Units 03:15 WBC 6.5 (4.3-11.1) K/mcL Hgb 8.7 L D (11.5-15.4) g/dL Hct 26.7 L (35.3-44.9) % Plt Count 102 L (140-400) K/mcL Neutrophils # 4.8 (1.6-8.9) K/mcL BMP 09/03/17 03:15 Sodium 147 H Potassium 4.0 Chloride 116 H Carbon Dioxide 22 L BUN 53 H Creatinine 1.66 H Glucose 112 H Calcium 8.5 L Urine 09/03/17 Range/Units 00:55 Urine Color Yellow (Yellow) Urine Clarity Turbid A (Clear) Urine pH 6.0 (5.0-8.0) pH Units Ur Specific [place] 1.015 (1.010-1.025) Urine Protein 30 H (Neg-Trace) mg/dL Urine Glucose (UA) Normal (Normal) mg/dL - ABG Interpretation ABG results: PT/INR, D-dimer PT 10.7 Seconds (9.4-12.1) 09/01/17 20:36 - Impressions Impressions Hip MRI 09/02/17 06:54 IMPRESSION: Acute to subacute traumatic fractures of the right superior and inferior pubic rami with associated marrow edema. Right sacral insufficiency fracture with intense marrow edema. Grade 2 strain/partial tear of the right hip adductor musculature likely related to the pubic rami fractures. D/ / 09/02/2017 10:55:26 Kemar Manuel MD / [facility] Interpreting Provider: Kemar Manuel MD Fluoroscopy 09/02/17 17:36 IMPRESSION: Intraprocedural fluoroscopic spot images as above. See separate procedure report for more information. D/ : / 09/02/2017 18:41:21 Ruy Broderick MD / [facility] Inter[facility] Provider: Ruy Broderick MD Wrist X-Ray 09/02/17 17:36 IMPRESSION: Intraprocedural fluoroscopic spot images as above. See separate procedure report for more information. D/ /02/2017 18:41:21 Ruy Broderick MD / [facility] Inter[facility] Provider: Ruy Broderick MD - VTE Documentation of Mechanical Device: Intermittent pneumatic compression device Consult Discharge Plan - Plan Referrals: Juan Carlos Hurst, DO [Primary Care Provider] -
[2017-09-03] MEDS: FOLTX PO SCH (09:09)
[2017-09-03] MEDS: cefTRIAXone 1,000 MG in Water for inj. (sterile) 20 ML 10 ML IVP SCH (10:26)
[2017-09-03] MEDS: (Cranberry [Cranberry] 500 MG) PO SCH (10:30)
[2017-09-03] MEDS: Primidone 50 MG TABLET PO SCH (22:37)
[2017-09-04 05:48] LABS: Hemoglobin 8.4 g/dL (11.5-15.4)
[2017-09-04 05:50] LABS: Basophils % 0.5 %; Eosinophils # 0.2 K/mcL (0.0-0.6); Hematocrit 24.9 % (35.3-44.9); Immature Platelets 5.4 % (1.1-6.1); Lymphocytes % 25.7 %; Mean Corpuscular HGB Conc 33.7 g/dL (31.6-35.5); Mean Corpuscular Hemoglobin 31.9 pg (28.0-33.3); Mean Corpuscular Volume 94.7 fL (83.0-100.0); Mean Platelet Volume 11.2 fL (9.4-12.4); Monocytes # 0.9 K/mcL (0.0-1.3); Monocytes % 11.8 %; Neutrophils # 4.5 K/mcL (1.6-8.9); Red Blood Count 2.63 M/mcL (3.82-4.97); Red Cell Distribution Width 14.2 % (11.5-14.5)
[2017-09-04] MEDS: *HR* OxyCODONE Immed Rel 5 MG TABLET PO PRN (05:51)
[2017-09-04] MEDS: *HR* Enoxaparin 30 MG/0.3 ML SYRINGE SQ SCH (05:51)
[2017-09-04 05:55] LABS: Platelet Count 90 K/mcL (140-400)
[2017-09-04 06:01] LABS: Calcium 8.1 mg/dL (8.6-10.3); Potassium 4.1 mEq/L (3.5-5.1)
--- NOTE | 2017-09-04 06:45 | Orthopedics Progress Note ---
Date of Encounter: 09/04/17 Time of Encounter: 06:40 - Assessment and Plan (1) Fracture of wrist Current Visit: Yes Status: Acute Qualifiers: Encounter type: initial encounter Fracture type: closed Laterality: right Qualified Code(s): S62.101A - Fracture of unspecified carpal bone, right wrist, initial encounter for closed fracture Subjective Interval history: S: The patient is resting in bed. Pain control to the right wrist. O: Afebrile on the vital signs are stable Right upper extremity and postoperative splint She can grossly flex and extend the exposed digits which are mildly puffy. Exposed digits are sensate and well-perfused. The MRI of the right hip did not demonstrate any fractures of the proximal femur. There are insufficiency fractures of the sacrum and pubic rami A: Post open reduction and internal fixation of the right distal radius Sacral and pubic rami insufficiency fractures P: Nonweightbearing to the right upper extremity. Keep the splint and dressing clean, dry, and intact. Digital motion exercises. PT and OT consults Nonoperative management for the pelvic insufficiency fractures Weightbearing as tolerated on the bilateral lower extremities. Objective Vital signs: Vital Signs Temp Pulse Resp BP Pulse Ox 09/04/17 04:34 97.8 F 78 15 144/84 100 09/04/17 00:00 98.5 F 88 16 152/77 100 09/03/17 21:00 100 09/03/17 18:56 97.8 F 77 15 159/83 100 09/03/17 15:03 98.4 F 77 16 174/85 92 09/03/17 11:05 98.0 F 80 18 177/78 94 09/03/17 09:18 94 Intake and Output 09/03/17 09/03/17 09/04/17 15:59 23:59 07:59 Intake Total 120 / 120 1310 / 1310 Output Total 400 / 400 725 / 725 Balance -280 / -280 585 / 585 Intake: IV Fluids Rocephin 1,000 MG In Water for inj. (sterile) 10 ML @ 600 mls/ hr IVP Q24H [facility] Rx#:[id number] Oral 120 / 120 1300 / 1300 Output: Urine 400 / 400 725 / 725 Other: Meal Breakfast Percent of Meal Consumed 25% # Voids 2 1 Weight 72.1 kg - Labs CBC & BMP: 09/04/17 04:00 09/04/17 05:30 Labs: Abnormal lab results RBC 2.63 M/mcL (3.82-4.97) L 09/04/17 04:00 Hgb 8.4 g/dL (11.5-15.4) L 09/04/17 04:00 Hct 24.9 % (35.3-44.9) L 09/04/17 04:00 Plt Count 90 K/mcL (140-400) L 09/04/17 04:00 Chloride 115 mEq/L (98-107) H 09/04/17 05:30 Carbon Dioxide 22 mEq/L (23-29) L 09/04/17 05:30 BUN 33 mg/dL (8-23) H 09/04/17 05:30 Creatinine 1.31 mg/dL (0.60-1.20) H 09/04/17 05:30 Est GFR ( Amer) 47 (> 60) L 09/04/17 05:30 Est GFR (Non-Af Amer) 38 (> 60) L 09/04/17 05:30 Calculated Osmolality 303 (280-300) H 09/04/17 05:30 Calcium 8.1 mg/dL (8.6-10.3) L 09/04/17 05:30 Urine Clarity Turbid (Clear) A 09/03/17 00:55 Urine Protein 30 mg/dL (Neg-Trace) H 09/03/17 00:55 Urine Blood Small (Negative) H 09/03/17 00:55 Ur Leukocyte Esterase Large (Negative) H 09/03/17 00:55 Urine Microscopic RBC 5-15 per hpf (0-3) H 09/03/17 00:55 Urine Microscopic WBC TNTC per hpf (0-3) H 09/03/17 00:55 Ur Squamous Epith Cells Many per lpf (None-Few) H 09/03/17 00:55 Urine Bacteria Many per hpf (None-Few) H 09/03/17 00:55 Ur Culture Indicated? NO. (NO) A 09/03/17 00:55 - VTE Documentation of Mechanical Device: Intermittent pneumatic compression device Consult Discharge Plan - Plan Additional Instructions: Discharge Instructions Dressing: Keep the dressing and splint clean, dry, intact Do not take off or get wet or dirty Activity: Motion exercises to the right fingers, elbow, shoulder, both active and passive Elevate the right upper extremity NWB to the right upper extremity, though she may weightbear through the elbow with a platform walker WBAT B/L LE Medications: Pain medication per the discharging hospitalist Consults: Consult PT and OT for mobilization, up to chair BID, and motion exercises, Eval and Tx Diet: Resume preoperative diet Follow up: Dr. Mckenna about 2 weeks from the surgery date for suture removal and for repeat xrays of the pelvis Referrals: Juan Carlos Hurst DO [Primary Care Provider] -
[2017-09-04] MEDS: Gabapentin 300 MG CAPSULE PO SCH (07:54)
[2017-09-04] MEDS: Carbidopa/Levodopa 25/100 TABLET PO SCH (07:54)
[2017-09-04] MEDS: FOLTX PO SCH (07:55)
[2017-09-04] MEDS: (Cranberry [Cranberry] 500 MG) PO SCH (07:55)
[2017-09-04] MEDS: traMADol 50 MG TABLET PO PRN (07:55)
[2017-09-04] MEDS: cefTRIAXone 1,000 MG in Water for inj. (sterile) 20 ML 10 ML IVP SCH (07:56)
[2017-09-04 11:58] VITALS: BP 148/60
--- NOTE | 2017-09-04 12:11 | Discharge Summary ---
- NOTES TO OUTPATIENT PROVIDER Notes to Outpatient Provider: Follow up with SNF physician in 2-3 days after discharge. Recheck BMP (ASHLEY) and CBC (anemia) at that time. Follow up with orthopedic surgery in 2 weeks as directed. Orders not resulted at time of discharge: Pending orders 09/02/17 06:00 EKG [ECG 12 lead ECG] [ECG] AM 0600 09/02/17 17:02 US anesthesia pain block [US] Stat Date of Encounter: 09/04/17 Time of Encounter: 12:09 - Discharge Diagnosis (1) Fracture of wrist Priority: Primary Status: Acute Qualifiers: Encounter type: initial encounter Fracture type: closed Laterality: right Qualified Code(s): S62.101A - Fracture of unspecified carpal bone, right wrist, initial encounter for closed fracture (2) Contusion of right hip Priority: Secondary Status: Acute Qualifiers: Encounter type: initial encounter Qualified Code(s): S70.01XA - Contusion of right hip, initial encounter (3) Scalp hematoma Priority: Secondary Status: Acute Qualifiers: Encounter type: initial encounter Qualified Code(s): S00.03XA - Contusion of scalp, initial encounter (4) ASHLEY (acute kidney injury) Priority: Secondary Status: Acute (5) Parkinsons disease Priority: Secondary Status: Chronic (6) Fall Priority: Secondary Status: Acute Qualifiers: Encounter type: initial encounter Qualified Code(s): W19.XXXA - Unspecified fall, initial encounter (7) HTN (hypertension) Priority: Secondary Status: Chronic Qualifiers: Hypertension type: essential hypertension Qualified Code(s): I10 - Essential (primary) hypertension (8) Acute cystitis with hematuria Priority: Secondary Status: Acute (9) DVT prophylaxis Priority: Secondary Status: Acute Hospital course: Ms. Kelley is a 87 year old female admitted for right wrist fracture and right hip contusion s/p fall. She was admitted to orthopedic floor with telemetry. Orthopedic surgery was consulted. She had open reduction and internal fixation of the right distal radius. She was placed on IVF for ASHLEY, and creatinine improved daily. She was started on rocephin for UTI; she will complete 7 day total course of antibiotics with PO cipro. She will follow up with SNF physician in 2-3 days after discharge. Repeat BMP (ASHLEY) and CBC (anemia) can be rechecked at that time. She will follow up with orthopedic surgery in 2 weeks after discharge as directed. Patient has met maximum benefit of this hospitalization and will be discharged to [facility] in stable condition. Discharge discussed with: patient, nurse, social work - Time Spent with Patient Total time spent providing and/or coordinating discharge services: Less than 30 minutes - Discharge Medications Prescriptions: Ciprofloxacin HCl [Cipro] 250 mg PO Q12H 5 Days #10 tab OxyCODONE Immed Rel [Roxicodone 5 MG] 5 mg PO Q6H PRN 3 Days #12 tablet PRN Reason: Breakthrough Pain Home Medications: B12/Levomefolate Calcium/B-6 [Foltx Tablet] 1 each PO DAILY 03/12/15 [History] Carbidopa/Levodopa 25/100 [Sinemet 25/100] 1 each PO TID 02/17/16 [History] Raloxifene [Evista] 60 mg PO DAILY 02/17/16 [History] Buspirone HCl [Buspar] 10 mg PO BID 09/01/17 [History] Cranberry 500 mg PO DAILY 09/01/17 [History] Ferrous Sulfate [Iron] 325 mg PO DAILY 09/01/17 [History] Furosemide [Lasix] 20 - 40 mg PO DAILY 09/01/17 [History] Gabapentin [Neurontin] 300 mg PO BID 09/01/17 [History] Losartan Potassium [Cozaar] 50 mg PO DAILY 09/01/17 [History] Omeprazole [PriLOSEC] 20 mg PO DAILY 09/01/17 [History] Potassium Chloride [Klor-Con 10] 10 meq PO DAILY 09/01/17 [History] Primidone [Mysoline] 50 mg PO HS 09/01/17 [History] Sertraline [Zoloft] 100 mg PO DAILY 09/01/17 [History] Acetaminophen [Tylenol] 650 mg PO Q6HR PRN tablet 09/04/17 [Rx] Ciprofloxacin HCl [Cipro] 250 mg PO Q12H 5 Days #10 tab 09/04/17 [Rx] OxyCODONE Immed Rel [Roxicodone 5 MG] 5 mg PO Q6H PRN 3 Days #12 tablet [Rx] Allergies/Adverse Reactions: 3 Allergy/AdvReac Type Severity Reaction Status Date / Time clarithromycin Allergy Unknown See Verified 08/30/16 11:32 Comments propoxyphene [From Darvon] Allergy Hives Verified 08/30/16 11:32 aspirin [ASA] AdvReac Heartburn Verified 08/30/16 11:32 cephalexin [From Keflex] AdvReac Hives Verified 08/30/16 11:32 dextran 40 AdvReac Rash Verified 09/01/17 14:12 fluoxetine [From Prozac] AdvReac Numbness Verified 08/30/16 11:32 guaifenesin [From Humibid] AdvReac Hives Verified 08/30/16 11:32 Date of admission: 09/01/17 19:16 Primary care physician: Juan Carlos Hurst DO Consults: Orthopedic Surgery 09/02/17 06:42 Consult to [employer] [CONS] Routine Reason for SW Consult: possible need for ECF 09/03/17 08:55 Consult to Occupational Therapy [CONS] Routine Comment: Evaluate, develop and implement POC Reason for Consult: Wrist Fracture. Please evaluate and determine rehab needs. Thanks. Does patient have active BEDREST order?: No Is patient medically & hemodynamically stable?: Yes Patient assessed for mobility or mobilized this visit?: No Consult to Physical Therapy [CONS] Routine Comment: Evaluate, develop and implement POC Reason for Consult: Wrist Fracture. Please evaluate and determine rehab needs. Thanks. Does patient have active BEDREST order?: No Is patient medically & hemodynamically stable?: Yes Patient assessed for mobility or mobilized this visit?: No 09/04/17 08:25 Consult to [employer] [CONS] Stat Reason for SW Consult: SNF placement for acute rehab. Plan for discharge today. Discharging clinician: Derick Jimenez Anticipated date of discharge: 09/04/17 - Constitutional Vitals: Temp Pulse Resp BP Pulse Ox 98.7 F 90 16 148/60 93 09/04/17 11:47 09/04/17 11:47 09/04/17 11:47 09/04/17 11:47 09/04/17 11:47 General appearance: Present: cooperative, A&O X 3, pleasant, no acute distress, answers questions appropriately - Respiratory Respiratory exam: Present: CTAB. Absent: accessory muscle use, rales, rhonchi, wheezes Additional comments: Normal WOB - Cardiovascular Cardiovascular exam: Present: RRR, +S1, +S2. Absent: diastolic murmur, gallop, rubs, systolic murmur Additional comments: No BLE edema - GI/Abdominal GI/Abdominal exam: Present: normal bowel sounds, soft. Absent: distended, hepatomegaly, mass, splenomegaly, tenderness - Psychiatric Psychiatric exam: Present: normal affect, normal mood. Absent: agitated, anxious, depressed - Skin Skin exam: Present: dry, intact, warm. Absent: cyanosis, rash - Patient Status Disposition: Transfer SNF Condition: Good Overall status at discharge: patient is progressing back to baseline - Discharge Instructions Follow Up With: Juan Carlos Hurst DO [Primary Care Provider] - Forms: ED Satisfaction Letter Additional Instructions: Follow up with SNF physician in 2-3 days after discharge. Recheck BMP (ASHLEY) and CBC (anemia) at that time. Follow up with orthopedic surgery in 2 weeks as directed. Discharge Instructions Dressing: Keep the dressing and splint clean, dry, intact Do not take off or get wet or dirty Activity: Motion exercises to the right fingers, elbow, shoulder, both active and passive Elevate the right upper extremity NWB to the right upper extremity, though she may weightbear through the elbow with a platform walker WBAT B/L LE Medications: Pain medication per the discharging hospitalist Consults: Consult PT and OT for mobilization, up to chair BID, and motion exercises, Eval and Tx Diet: Resume preoperative diet Follow up: Dr. Mckenna about 2 weeks from the surgery date for suture removal and for repeat xrays of the pelvis - Diet and Activity Activity: as per physical therapy Diet: low fat, low cholesterol, low salt diet, other (Cardiac Diet)
--- NOTE | 2017-09-04 12:29 | Physician Discharge Referral ---
ExtendedCare Referral Info Transfer To: [facility] Provider in Charge after Transfer: Other (SNF Physician) Institutional Level of Care: Skilled - Diagnosis (1) Fracture of wrist Priority: Primary Status: Acute (2) Contusion of right hip Priority: Secondary Status: Acute (3) Scalp hematoma Priority: Secondary Status: Acute (4) ASHLEY (acute kidney injury) Priority: Secondary Status: Acute (5) Parkinsons disease Priority: Secondary Status: Chronic (6) Fall Priority: Secondary Status: Acute (7) HTN (hypertension) Priority: Secondary Status: Chronic (8) Acute cystitis with hematuria Priority: Secondary Status: Acute (9) DVT prophylaxis Priority: Secondary Status: Acute Prognosis: Fair Aware of Diagnosis: Patient Aware of Prognosis: Patient - Transfer Medications Prescriptions: Ciprofloxacin HCl [Cipro] 250 mg PO Q12H 5 Days #10 tab OxyCODONE Immed Rel [Roxicodone 5 MG] 5 mg PO Q6H PRN 3 Days #12 tablet PRN Reason: Breakthrough Pain Home Medications: B12/Levomefolate Calcium/B-6 [Foltx Tablet] 1 each PO DAILY 03/12/15 [History] Carbidopa/Levodopa 25/100 [Sinemet 25/100] 1 each PO TID 02/17/16 [History] Raloxifene [Evista] 60 mg PO DAILY 02/17/16 [History] Buspirone HCl [Buspar] 10 mg PO BID 09/01/17 [History] Cranberry 500 mg PO DAILY 09/01/17 [History] Ferrous Sulfate [Iron] 325 mg PO DAILY 09/01/17 [History] Furosemide [Lasix] 20 - 40 mg PO DAILY 09/01/17 [History] Gabapentin [Neurontin] 300 mg PO BID 09/01/17 [History] Losartan Potassium [Cozaar] 50 mg PO DAILY 09/01/17 [History] Omeprazole [PriLOSEC] 20 mg PO DAILY 09/01/17 [History] Potassium Chloride [Klor-Con 10] 10 meq PO DAILY 09/01/17 [History] Primidone [Mysoline] 50 mg PO HS 09/01/17 [History] Sertraline [Zoloft] 100 mg PO DAILY 09/01/17 [History] Acetaminophen [Tylenol] 650 mg PO Q6HR PRN tablet 09/04/17 [Rx] Ciprofloxacin HCl [Cipro] 250 mg PO Q12H 5 Days #10 tab 09/04/17 [Rx] OxyCODONE Immed Rel [Roxicodone 5 MG] 5 mg PO Q6H PRN 3 Days #12 tablet [Rx] Allergies/Adverse Reactions: 3 Allergy/AdvReac Type Severity Reaction Status Date / Time clarithromycin Allergy Unknown See Verified 08/30/16 11:32 Comments propoxyphene [From Darvon] Allergy Hives Verified 08/30/16 11:32 aspirin [ASA] AdvReac Heartburn Verified 08/30/16 11:32 cephalexin [From Keflex] AdvReac Hives Verified 08/30/16 11:32 dextran 40 AdvReac Rash Verified 09/01/17 14:12 fluoxetine [From Prozac] AdvReac Numbness Verified 08/30/16 11:32 guaifenesin [From Humibid] AdvReac Hives Verified 08/30/16 11:32 - Respiratory Orders None Smoking Cessation: Smoking cessation has been advised. For more information, call the [place] Tobacco Quit Line at 7-666-ZCVH-NOW. - Lab Orders Lab Orders: CBC (in 2-3 days after discharge), Other (include drug levels w/ frequency) (BMP in 2-3 days after discharge) - Advance Directives Code Status: Full Code - Mobility Orders Other (Per physical therapy) - Rehabiliation Orders Rehab Potential: Fair Rehab Orders: Evaluation for Physical Therapy, Evaluation for Occupational Therapy - Diet Orders Renal, Cardiac CERTIFICATION: I certify that the transfer of the above named patient to an Extended Care Facility is necessary for the continuing treatment of the diagnosis listed. The above information is true and accurate reflection of patient's current condition. Confidential - Redisclosure prohibited without a patient's written consent.
== END 2017-09-04 14:48 ==
LOC: EMEROO 17:12 → 3NENU 17:12
PROVIDERS: ADMIT Internal Medicine Hematology & Oncology; ATTEND Internal Medicine Hematology & Oncology

== ENCOUNTER 2017-12-18 21:42 | Observation (INO) ==
[2017-12-18 22:33] LABS: Hematocrit 28.6 % (35.3-44.9); Hemoglobin 9.2 g/dL (11.5-15.4); Mean Corpuscular HGB Conc 32.2 g/dL (31.6-35.5); Mean Corpuscular Hemoglobin 29.6 pg (28.0-33.3); Mean Platelet Volume 10.8 fL (9.4-12.4); Platelet Count 133 K/mcL (140-400); Red Blood Count 3.11 M/mcL (3.82-4.97); Red Cell Distribution Width 16.9 % (11.5-14.5)
[2017-12-18 23:15] LABS: Bilirubin,Urine Negative (Negative); Blood,Urine Trace (Negative); Clarity,Urine Cloudy (Clear); Color,Urine Yellow (Yellow); Glucose,Urine (UA) Normal (Normal); Ketones,Urine Negative (Negative); Leukocyte Esterase,Urine Large (Negative); Nitrite,Urine Positive (Negative); Protein,Urine Negative (Neg-Trace); Specific Gravity,Urine 1.025 (1.010-1.025); Urobilinogen,Urine Normal (Normal)
[2017-12-18 23:18] LABS: Bacteria,Urine Many per hpf (None-Few); RBC,Urine 0-3 per hpf (0-3); Squamous Epithelial Cell,Urine Many per lpf (None-Few); WBC,Urine 30-50 per hpf (0-3)
[2017-12-18 23:30] LABS: Hyaline Casts,Urine Few per lpf (None-Few)
--- NOTE | 2017-12-19 00:46 | Emergency Department Note ---
Disposition Clinical Impression: Chest pain Qualifiers: Chest pain type: unspecified Qualified Code(s): R07.9 - Chest pain, unspecified Urinary tract infection Qualifiers: Urinary tract infection type: site unspecified Hematuria presence: without hematuria Qualified Code(s): N39.0 - Urinary tract infection, site not specified Anemia Qualifiers: Anemia type: unspecified type Qualified Code(s): D64.9 - Anemia, unspecified Disposition: Admitted As Inpatient Condition: Good Referrals: Juan Carlos Hurst DO [Primary Care Provider] - Forms: ED Satisfaction Letter, Work/School Release Time of Disposition: 01:51 General Adult HPI - General Chief complaint: ED General Medical Stated complaint: Itching Time Seen by Provider: 12/18/17 23:32 Source: patient Limitations: no limitations Nursing Notes Reviewed: Yes Vital Signs Reviewed: Yes - History of Present Illness HPI Narrative: Patient is a 87-year-old female presents emergency Department with chest pressure in the center of her chest. Patient was seen at outside hospital and was sent here for a VQ scan. Patient states that she has had this chest pressure for a couple of days. Patient states that she has not ambulatory. Denies any hemoptysis. Patient denies any hormone therapy. Patient states that she has had itching on bilateral upper extremities. Patient denies any previous cardiac or pulmonary history. Patient denies any oxygen use at home. Pain Scale: 0 - Related Data Home Medications Medication Instructions Recorded Confirmed Carbidopa/Levodopa 25/100 [Sinemet 1 each PO TID 02/17/16 12/18/17 25/100] Raloxifene [Evista] 60 mg PO DAILY 02/17/16 12/18/17 Buspirone HCl [Buspar] 10 mg PO BID 09/01/17 12/18/17 Cranberry 500 mg PO DAILY 09/01/17 12/18/17 Primidone [Mysoline] 50 mg PO HS 09/01/17 12/18/17 Sertraline [Zoloft] 100 mg PO DAILY 09/01/17 12/18/17 B12/Levomefolate Calcium/B-6 1 each PO DAILY 09/17/17 12/18/17 [Foltx Tablet] Cholecalciferol (Vitamin D3) 2,000 unit PO DAILY 12/18/17 12/18/17 [Vitamin D] Folic Acid 1 mg PO DAILY 12/18/17 12/18/17 Furosemide [Lasix] 20 mg PO DAILY 12/18/17 12/18/17 Ipratropium/Albuterol Neb [Duoneb] 3 ml IH Q6HR 12/18/17 12/18/17 Losartan Potassium [Cozaar] 50 mg PO DAILY 12/18/17 12/18/17 Potassium Chloride [K-Tab ER] 10 meq PO DAILY 12/18/17 12/18/17 Previous Rx's Medication Instructions Recorded Acetaminophen [Tylenol] 650 mg PO Q6HR PRN tablet 09/04/17 Gabapentin [Neurontin] 300 mg PO BID 3 Days #6 capsule 09/04/17 Ferrous Sulfate 325 mg PO DAILY@0630 tablet 09/18/17 Allergies Allergy/AdvReac Type Severity Reaction Status Date / Time clarithromycin Allergy Unknown See Verified 12/18/17 22:20 Comments propoxyphene [From Darvon] Allergy Hives Verified 12/18/17 22:20 aspirin [ASA] AdvReac Heartburn Verified 12/18/17 22:20 cephalexin [From Keflex] AdvReac Hives Verified 12/18/17 22:20 dextran 40 AdvReac Rash Verified 12/18/17 22:20 diphenhydramine AdvReac See Verified 12/18/17 22:20 [From Benadryl] Comments fluoxetine [From Prozac] AdvReac Numbness Verified 12/18/17 22:20 guaifenesin [From Humibid] AdvReac Hives Verified 12/18/17 22:20 All systems ED: reviewed and negative except as stated. Cardiovascular: Reports: chest pain (Pressure) Respiratory: Reports: dyspnea Past Medical History - Past Medical History Medical history: Reports: arthritis, CVA, GERD, hypertension, osteoporosis, other Surgical history: Reports: breast surgery, cancer surgery, colostomy Psychiatric history: Reports: anxiety, depression AWS DEVELOPER history: Reports: no AWS DEVELOPER history - Social History Smoking Status: Never smoker Smokeless Tobacco Status: No Alcohol use: Reports: none Drug use: Reports: none Physical Exam - General Limitations: no limitations General appearance: alert, in no apparent distress - Head Head exam: atraumatic, normocephalic - Eye Eye exam: Present: normal appearance, EOMI - Neck Neck exam: Present: normal inspection, full ROM, trachea midline - Respiratory Respiratory exam: Present: normal lung sounds bilaterally. Absent: respiratory distress, wheezes - Cardiovascular Cardiovascular exam: Present: regular rate, normal rhythm, normal heart sounds, +S1, +S2 - Abdominal Exam Abdominal exam: Present: soft, Non-Tender, normal bowel sounds - Extremities Exam Extremities exam: Present: other (Mild edema to bilateral lower extremity.) - Neurological Exam Neurological exam: Present: alert, oriented X3 - Psychiatric Psychiatric exam: Present: normal affect, normal mood - Skin Skin exam: Present: warm, dry, intact Course Vital Signs Temperature 98.3 F 12/18/17 22:29 Pulse Rate 72 12/18/17 22:29 Respiratory Rate 16 12/18/17 22:29 Blood Pressure 97/51 12/18/17 22:29 O2 Sat by Pulse Oximetry 98 12/18/17 22:29 Temperature 98.3 F 12/18/17 22:29 Pulse Rate 74 12/18/17 23:22 Respiratory Rate 15 12/18/17 23:22 Blood Pressure 91/68 12/18/17 23:22 O2 Sat by Pulse Oximetry 100 12/18/17 23:22 Oxygen Delivery Oxygen Delivery Nasal Cannula Medical Decision Making - MDM Narrative Medical decision making narrative: Due the patient is not emergency Department with shortness of breath and being sent from outside hospital for a VQ scan we were attempting to do a VQ scan however the patient is unable to have a VQ scan done at this time due to it being after midnight and there being known and house to perform this study. Patient does have a urinary tract infection. She did receive Cipro at the outside hospital. Due to the inability of having a VQ scan tonight we will give the patient Lovenox and admit the patient to the hospital. The patient was unable to have a CTA of the chest due to the patient having a GFR of 32. I called and spoke the admitting hospitalist Dr. Preston and he has accepted the patient to their service. Patient be admitted to the hospital this time for further evaluation and management. - Medical Records Medical records reviewed: Yes I reviewed the patient's medical records. - Lab Data Lab results reviewed: Yes I reviewed the patient's lab results. Result diagrams: 12/18/17 22:18 12/18/17 22:18 Lab Results 12/18/17 12/18/17 12/18/17 Range/Units 22:18 22:18 22:18 WBC 6.3 (4.3-11.1) K/mcL RBC 3.11 L (3.82-4.97) M/mcL Hgb 9.2 L (11.5-15.4) g/dL Hct 28.6 L (35.3-44.9) % MCV 92.0 (83.0-100.0) fL MCH 29.6 (28.0-33.3) pg MCHC 32.2 (31.6-35.5) g/dL RDW 16.9 H (11.5-14.5) % Plt Count 133 L (140-400) K/mcL MPV 10.8 (9.4-12.4) fL Sodium 136 (136-145) mEq/L Potassium 4.0 (3.5-5.1) mEq/L Chloride 109 H (98-107) mEq/L Carbon Dioxide 19 L (23-29) mEq/L BUN 36 H (8-23) mg/dL Creatinine 1.46 H (0.60-1.20) mg/dL Est GFR ( Amer) 41 L (> 60) Est GFR (Non-Af Amer) 34 L (> 60) BUN/Creatinine Ratio 25 (6-26) Glucose 105 (70-105) mg/dL Calculated Osmolality 291 (280-300) Calcium 8.0 L (8.6-10.3) mg/dL Troponin I < 0.03 (< 0.04) ng/mL Urine Color (Yellow) Urine Clarity (Clear) Urine pH (5.0-8.0) pH Units Ur Specific [place] (1.010-1.025) Urine Protein (Neg-Trace) mg/dL Urine Glucose (UA) (Normal) mg/dL Urine Ketones (Negative) mg/dL Urine Blood (Negative) Urine Nitrite (Negative) Urine Bilirubin (Negative) Urine Urobilinogen (Normal) mg/dL Ur Leukocyte Esterase (Negative) Urine Microscopic RBC (0-3) per hpf Urine Microscopic WBC (0-3) per hpf Ur Squamous Epith Cells (None-Few) per lpf Urine Bacteria (None-Few) per hpf Hyaline Casts (None-Few) per lpf 12/18/17 Range/Units 23:05 WBC (4.3-11.1) K/mcL RBC (3.82-4.97) M/mcL Hgb (11.5-15.4) g/dL Hct (35.3-44.9) % MCV (83.0-100.0) fL MCH (28.0-33.3) pg MCHC (31.6-35.5) g/dL RDW (11.5-14.5) % Plt Count (140-400) K/mcL MPV (9.4-12.4) fL Sodium (136-145) mEq/L Potassium (3.5-5.1) mEq/L Chloride (98-107) mEq/L Carbon Dioxide (23-29) mEq/L BUN (8-23) mg/dL Creatinine (0.60-1.20) mg/dL Est GFR ( Amer) (> 60) Est GFR (Non-Af Amer) (> 60) BUN/Creatinine Ratio (6-26) Glucose (70-105) mg/dL Calculated Osmolality (280-300) Calcium (8.6-10.3) mg/dL Troponin I (< 0.04) ng/mL Urine Color Yellow (Yellow) Urine Clarity Cloudy A (Clear) Urine pH 5.0 (5.0-8.0) pH Units Ur Specific [place] 1.025 (1.010-1.025) Urine Protein Negative (Neg-Trace) mg/dL Urine Glucose (UA) Normal (Normal) mg/dL Urine Ketones Negative (Negative) mg/dL Urine Blood Trace H (Negative) Urine Nitrite Positive A (Negative) Urine Bilirubin Negative (Negative) Urine Urobilinogen Normal (Normal) mg/dL Ur Leukocyte Esterase Large H (Negative) Urine Microscopic RBC 0-3 (0-3) per hpf Urine Microscopic WBC 30-50 H (0-3) per hpf Ur Squamous Epith Cells Many H (None-Few) per lpf Urine Bacteria Many H (None-Few) per hpf Hyaline Casts Few (None-Few) per lpf - Radiology Data Radiology results reviewed: Yes I reviewed the patient's radiology results. - EKG Data EKG #1 EKG attestation: Yes I reviewed and interpreted this EKG. EKG results narrative: EKG showed a sinus rhythm at a rate of 76 bpm, MI interval 206, curious duration of 100, QTc of 463 with a normal axis. There is no evidence of STEMI on EKG.
[2017-12-19] MEDS ORDERED: 0.9 % Sodium Chloride 1,000 ML IVC ONE (00:47)
[2017-12-19] MEDS ORDERED: *HR* Enoxaparin 80 MG/0.8 ML SYRINGE SQ STA (00:56)
--- NOTE | 2017-12-19 02:23 | Emergency Department Note ---
Disposition Clinical Impression: Chest pain Qualifiers: Chest pain type: unspecified Qualified Code(s): R07.9 - Chest pain, unspecified Urinary tract infection Qualifiers: Urinary tract infection type: site unspecified Hematuria presence: without hematuria Qualified Code(s): N39.0 - Urinary tract infection, site not specified Anemia Qualifiers: Anemia type: unspecified type Qualified Code(s): D64.9 - Anemia, unspecified Disposition: Admitted As Inpatient Condition: Good General Adult HPI - General Chief complaint: ED General Medical Stated complaint: Itching Time Seen by Provider: 12/18/17 23:32 Source: patient Limitations: no limitations Nursing Notes Reviewed: Yes Vital Signs Reviewed: Yes - History of Present Illness Pain Scale: 0 - Related Data Home Medications Medication Instructions Recorded Confirmed Carbidopa/Levodopa 25/100 [Sinemet 1 each PO TID 02/17/16 12/18/17 25/100] Raloxifene [Evista] 60 mg PO DAILY 02/17/16 12/18/17 Buspirone HCl [Buspar] 10 mg PO BID 09/01/17 12/18/17 Cranberry 500 mg PO DAILY 09/01/17 12/18/17 Primidone [Mysoline] 50 mg PO HS 09/01/17 12/18/17 Sertraline [Zoloft] 100 mg PO DAILY 09/01/17 12/18/17 B12/Levomefolate Calcium/B-6 1 each PO DAILY 09/17/17 12/18/17 [Foltx Tablet] Cholecalciferol (Vitamin D3) 2,000 unit PO DAILY 12/18/17 12/18/17 [Vitamin D] Folic Acid 1 mg PO DAILY 12/18/17 12/18/17 Furosemide [Lasix] 20 mg PO DAILY 12/18/17 12/18/17 Ipratropium/Albuterol Neb [Duoneb] 3 ml IH Q6HR 12/18/17 12/18/17 Losartan Potassium [Cozaar] 50 mg PO DAILY 12/18/17 12/18/17 Potassium Chloride [K-Tab ER] 10 meq PO DAILY 12/18/17 12/18/17 Previous Rx's Medication Instructions Recorded Acetaminophen [Tylenol] 650 mg PO Q6HR PRN tablet 09/04/17 Gabapentin [Neurontin] 300 mg PO BID 3 Days #6 capsule 09/04/17 Ferrous Sulfate 325 mg PO DAILY@0630 tablet 09/18/17 Allergies Allergy/AdvReac Type Severity Reaction Status Date / Time clarithromycin Allergy Unknown See Verified 12/18/17 22:20 Comments propoxyphene [From Darvon] Allergy Hives Verified 12/18/17 22:20 aspirin [ASA] AdvReac Heartburn Verified 12/18/17 22:20 cephalexin [From Keflex] AdvReac Hives Verified 12/18/17 22:20 dextran 40 AdvReac Rash Verified 12/18/17 22:20 diphenhydramine AdvReac See Verified 12/18/17 22:20 [From Benadryl] Comments fluoxetine [From Prozac] AdvReac Numbness Verified 12/18/17 22:20 guaifenesin [From Humibid] AdvReac Hives Verified 12/18/17 22:20 Cardiovascular: Reports: chest pain (Pressure) Respiratory: Reports: dyspnea Past Medical History - Past Medical History Medical history: Reports: arthritis, CVA, GERD, hypertension, osteoporosis, other Surgical history: Reports: breast surgery, cancer surgery, colostomy Psychiatric history: Reports: anxiety, depression DISHWASHER PREPARER history: 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: no DISHWASHER PREPARER history - Social History Smoking Status: Never smoker Smokeless Tobacco Status: No Alcohol use: Reports: none Drug use: Reports: none Physical Exam - General Limitations: no limitations General appearance: alert, in no apparent distress Course Vital Signs Temperature 98.3 F 12/18/17 22:29 Pulse Rate 72 12/18/17 22:29 Respiratory Rate 16 12/18/17 22:29 Blood Pressure 97/51 12/18/17 22:29 O2 Sat by Pulse Oximetry 98 12/18/17 22:29 Temperature 98.3 F 12/18/17 22:29 Pulse Rate 73 12/19/17 02:10 Respiratory Rate 20 12/19/17 02:10 Blood Pressure 115/54 12/19/17 02:10 O2 Sat by Pulse Oximetry 99 12/19/17 02:10 Oxygen Delivery Oxygen Delivery Nasal Cannula Medical Decision Making - Medical Records Medical records reviewed: Yes I reviewed the patient's medical records. - Lab Data Lab results reviewed: Yes I reviewed the patient's lab results. Result diagrams: 12/18/17 22:18 12/18/17 22:18 Lab Results 12/18/17 12/18/17 12/18/17 Range/Units 22:18 22:18 22:18 WBC 6.3 (4.3-11.1) K/mcL RBC 3.11 L (3.82-4.97) M/mcL Hgb 9.2 L (11.5-15.4) g/dL Hct 28.6 L (35.3-44.9) % MCV 92.0 (83.0-100.0) fL MCH 29.6 (28.0-33.3) pg MCHC 32.2 (31.6-35.5) g/dL RDW 16.9 H (11.5-14.5) % Plt Count 133 L (140-400) K/mcL MPV 10.8 (9.4-12.4) fL Sodium 136 (136-145) mEq/L Potassium 4.0 (3.5-5.1) mEq/L Chloride 109 H (98-107) mEq/L Carbon Dioxide 19 L (23-29) mEq/L BUN 36 H (8-23) mg/dL Creatinine 1.46 H (0.60-1.20) mg/dL Est GFR ( Amer) 41 L (> 60) Est GFR (Non-Af Amer) 34 L (> 60) BUN/Creatinine Ratio 25 (6-26) Glucose 105 (70-105) mg/dL Calculated Osmolality 291 (280-300) Calcium 8.0 L (8.6-10.3) mg/dL Troponin I < 0.03 (< 0.04) ng/mL Urine Color (Yellow) Urine Clarity (Clear) Urine pH (5.0-8.0) pH Units Ur Specific [place] (1.010-1.025) Urine Protein (Neg-Trace) mg/dL Urine Glucose (UA) (Normal) mg/dL Urine Ketones (Negative) mg/dL Urine Blood (Negative) Urine Nitrite (Negative) Urine Bilirubin (Negative) Urine Urobilinogen (Normal) mg/dL Ur Leukocyte Esterase (Negative) Urine Microscopic RBC (0-3) per hpf Urine Microscopic WBC (0-3) per hpf Ur Squamous Epith Cells (None-Few) per lpf Urine Bacteria (None-Few) per hpf Hyaline Casts (None-Few) per lpf 12/18/17 Range/Units 23:05 WBC (4.3-11.1) K/mcL RBC (3.82-4.97) M/mcL Hgb (11.5-15.4) g/dL Hct (35.3-44.9) % MCV (83.0-100.0) fL MCH (28.0-33.3) pg MCHC (31.6-35.5) g/dL RDW (11.5-14.5) % Plt Count (140-400) K/mcL MPV (9.4-12.4) fL Sodium (136-145) mEq/L Potassium (3.5-5.1) mEq/L Chloride (98-107) mEq/L Carbon Dioxide (23-29) mEq/L BUN (8-23) mg/dL Creatinine (0.60-1.20) mg/dL Est GFR ( Amer) (> 60) Est GFR (Non-Af Amer) (> 60) BUN/Creatinine Ratio (6-26) Glucose (70-105) mg/dL Calculated Osmolality (280-300) Calcium (8.6-10.3) mg/dL Troponin I (< 0.04) ng/mL Urine Color Yellow (Yellow) Urine Clarity Cloudy A (Clear) Urine pH 5.0 (5.0-8.0) pH Units Ur Specific [place] 1.025 (1.010-1.025) Urine Protein Negative (Neg-Trace) mg/dL Urine Glucose (UA) Normal (Normal) mg/dL Urine Ketones Negative (Negative) mg/dL Urine Blood Trace H (Negative) Urine Nitrite Positive A (Negative) Urine Bilirubin Negative (Negative) Urine Urobilinogen Normal (Normal) mg/dL Ur Leukocyte Esterase Large H (Negative) Urine Microscopic RBC 0-3 (0-3) per hpf Urine Microscopic WBC 30-50 H (0-3) per hpf Ur Squamous Epith Cells Many H (None-Few) per lpf Urine Bacteria Many H (None-Few) per hpf Hyaline Casts Few (None-Few) per lpf Attestation Statement - Attestation Attestation: I, Jorge Heller MD, personally evaluated this patient and discussed their management with the resident physician. I reviewed the resident's note and agree with the documented findings, medical decision making, and plan of care. 87-year-old female transferred here from [facility] for a VQ scan. Patient presented complaining of some chest tightness and substernal chest discomfort for the past couple of days. She was found to have an elevated d-dimer at the other facility. Unable to have a CTA due to decreased renal function. She was also found to have a UTI. She received Cipro prior to arrival here. On examination patient is a well-developed well-nourished elderly female in no acute distress. She is alert and answers questions appropriate. No cyanosis or diaphoresis. Chest is nontender to palpation. Breath sounds are clear and equal bilaterally. Heart regular rate and rhythm. Abdomen is soft and nontender with normal bowel sounds. Trace pedal edema. Labs reviewed. Unable to obtain a VQ scan as her medicine does not take call at night. Patient was given Lovenox injection. The hospitalist, Dr. Preston, was consulted and accepted admission of the patient.
[2017-12-19] MEDS ORDERED: Acetaminophen 325 MG TABLET PO PRN (02:29)
[2017-12-19] MEDS ORDERED: 0.9 % Sodium Chloride 1,000 ML IVC SCH (02:30)
[2017-12-19] MEDS ORDERED: Isovue-370 500 ML INFUS..BTL IV ONE (02:33)
--- NOTE | 2017-12-19 02:54 | Internal Med History&Physical ---
Date of Encounter: 12/19/17 Time of Encounter: 02:52 Internal Medicine - H&P: HPI Chief complaint: chest pain Admitted From: Home Plans for Post Hospital Care: Home History of present illness: Ms. Kelley is a 87 year old female who was sent from [place] to our ER to rule out pulmonary embolism. Of note she has been seen in the past with complaints of similar chest pain. She went to [facility] complaining of some chest tightness and substernal chest discomfort for the past couple of days. She was found to have an elevated d-dimer at the other facility however unable to have a CTA due to decreased renal function. So a VQ scan was recommended however at the time of her arrival here, this was no longer available so she was given a shot of enoxaparin and admitted for observation and possibly undergoing the study in the morning. On my evaluation the patient was laying comfortably in bed in no acute distress. More so than chest pain she complains of feeling itchy under her breasts and around her waist. She says she lives alone with her . She denies ongoing chest pain and dyspnea at this time. Old records reviewed show that she had an even more elevated d-dimer a few months ago at which time there was also suspicion for OK and PE however CTA was not done. Past Med Surg Social Fam HX - Past Medical History Medical history: arthritis, CVA, GERD, hypertension, osteoporosis, other Additional medical history: parkinsons. polyneuropathy Psychiatric history: anxiety, depression - Past Surgical History Surgical History: breast surgery, cancer surgery, colostomy Additional surgical history: Diverticulum surgery, end-to-end anastamosis. Lumpectomy right breast for cancer. skin cancer removed from ear and fore head. - Social History Smoking Status: Never smoker Smokeless Tobacco Status: No Alcohol use: none Drug use: none - Family History Mother Adopted: No Living Status: Hx Family Cardiac Disorders: No Hx Family Respiratory Disorders: No Hx Family Cancer: Yes (Lung) Hx Family GI Disorders: No Hx Family Endocrine Disorder: No Hx Family Neuromuscular Disorders: No Hx Family Neurologic Disorders: No Hx Family HEENT Disorders: No Hx Family Autoimmune Disorders: No Internal Medicine - H&P: Meds Carbidopa/Levodopa 25/100 [Sinemet 25/100] 1 each PO TID 02/17/16 [History] Raloxifene [Evista] 60 mg PO DAILY 02/17/16 [History] Buspirone HCl [Buspar] 10 mg PO BID 09/01/17 [History] Cranberry 500 mg PO DAILY 09/01/17 [History] Primidone [Mysoline] 50 mg PO HS 09/01/17 [History] Sertraline [Zoloft] 100 mg PO DAILY 09/01/17 [History] Acetaminophen [Tylenol] 650 mg PO Q6HR PRN tablet 09/04/17 [Rx] Gabapentin [Neurontin] 300 mg PO BID 3 Days #6 capsule 09/04/17 [Rx] B12/Levomefolate Calcium/B-6 [Foltx Tablet] 1 each PO DAILY 09/17/17 [History] Ferrous Sulfate 325 mg PO DAILY@0630 tablet 09/18/17 [Rx] Cholecalciferol (Vitamin D3) [Vitamin D] 2,000 unit PO DAILY 12/18/17 [History] Folic Acid 1 mg PO DAILY 12/18/17 [History] Furosemide [Lasix] 20 mg PO DAILY 12/18/17 [History] Ipratropium/Albuterol Neb [Duoneb] 3 ml IH Q6HR 12/18/17 [History] Losartan Potassium [Cozaar] 50 mg PO DAILY 12/18/17 [History] Potassium Chloride [K-Tab ER] 10 meq PO DAILY 12/18/17 [History] 3 Allergy/AdvReac Type Severity Reaction Status Date / Time clarithromycin Allergy Unknown See Verified 12/18/17 22:20 Comments propoxyphene [From Darvon] Allergy Hives Verified 12/18/17 22:20 aspirin [ASA] AdvReac Heartburn Verified 12/18/17 22:20 cephalexin [From Keflex] AdvReac Hives Verified 12/18/17 22:20 dextran 40 AdvReac Rash Verified 12/18/17 22:20 diphenhydramine AdvReac See Verified 12/18/17 22:20 [From Benadryl] Comments fluoxetine [From Prozac] AdvReac Numbness Verified 12/18/17 22:20 guaifenesin [From Humibid] AdvReac Hives Verified 12/18/17 22:20 All Systems PM: A 10-system review of systems was performed and is negative for pertinent findings except as documented above in the HPI. - Constitutional Vitals: Temp Pulse Resp BP Pulse Ox 98.3 F 73 20 115/54 99 12/18/17 22:29 12/19/17 02:10 12/19/17 02:10 12/19/17 02:10 12/19/17 02:10 Exam: Vitals: Reviewed General: NAD, obese. Skin: Warm and supple. HEENT: Moist mucous membranes. No conjunctivae pallor. Neck: No lymphadenopathy. No JVD. No carotid bruits. No palpable thyroid. Chest: Normal thoracic expansion. Normal breath sounds. Heart: Normal S1 & S2; rhythmic. Abdomen: Non-distended, soft and non-tender to palpation. Extremities: 2+ pedal edema. Neurological: Awake, alert and oriented to person, place. Psych: Affect appropriate. Internal Med - H&P Results - Labs CBC & Chem 7: 12/18/17 22:18 12/18/17 22:18 - Assessment and plan (1) Chest pain Current Visit: Yes Status: Acute Assessment and plan: Unclear etiology. She is not currently tachycardic or hypoxic. EKG unremarkable and troponin negative. D-dimer is noted however was even more elevated in the past and her current clinical state is not suggestive of this. All the same the VQ scan has been ordered; will also give some fluids for dehydration and if her eGFR can improve a little then a more diagnostic CTA can be done for the sake of certainty. Will also obtain another troponin level and if needed check an echo to assess for right heart strain however unlikely as it may be. Qualifiers: Chest pain type: unspecified Qualified Code(s): R07.9 - Chest pain, unspecified (2) Anemia Current Visit: Yes Status: Chronic Assessment and plan: Currently at baseline. Continue FeSO4 Qualifiers: Anemia type: unspecified type Qualified Code(s): D64.9 - Anemia, unspecified (3) UTI (urinary tract infection) Current Visit: Yes Status: Acute Assessment and plan: Asymptomatic. No indication for treatment. Qualifiers: Urinary tract infection type: site unspecified Hematuria presence: without hematuria Qualified Code(s): N39.0 - Urinary tract infection, site not specified (4) CKD (chronic kidney disease) stage 3, GFR 30-59 ml/min Current Visit: Yes Status: Chronic Assessment and plan: Has an acute component. Meds to be renally adjusted. Will give low rate IVF to assess for improvement. (5) HTN (hypertension) Current Visit: Yes Status: Chronic Assessment and plan: Stable. Continue home antihypertensives. Qualifiers: Hypertension type: essential hypertension Qualified Code(s): I10 - Essential (primary) hypertension (6) Parkinsons disease Current Visit: Yes Status: Chronic Assessment and plan: Will remain on levodopa/carbidopa - Time Spent With Patient Total time spent is greater than 50% in coordination of care (as documented) at patient's floor/unit and/or counseling patient: Greater than 35 minutes
[2017-12-19 07:31] LABS: Troponin I < 0.03 ng/mL (< 0.04)
[2017-12-19 07:34] LABS: BUN/Creatinine Ratio 24 (6-26); Blood Urea Nitrogen 31 mg/dL (8-23); Calcium 8.1 mg/dL (8.6-10.3); Carbon Dioxide 18 mEq/L (23-29); Chloride 111 mEq/L (98-107); Glucose 84 mg/dL (70-105); Osmolality,Calculated 294 (280-300); Potassium 3.9 mEq/L (3.5-5.1); Sodium 139 mEq/L (136-145); eGFR For Non-African Americans 40 (> 60)
[2017-12-19] MEDS: Gabapentin 300 MG CAPSULE PO SCH ×2 (10:19→21:37)
[2017-12-19] MEDS: Carbidopa/Levodopa 25/100 TABLET PO SCH ×3 (10:19→21:37)
[2017-12-19] MEDS: Folic Acid 1 MG TABLET PO SCH (10:19)
[2017-12-19] MEDS: Cholecalciferol (D-3) 1,000 UNIT TABLET PO SCH (10:19)
[2017-12-19] MEDS ORDERED: hydrOXYzine pamoate 25 MG CAPSULE PO ONE (10:31)
--- NOTE | 2017-12-19 10:33 | Event Note ---
Date of Encounter: 12/19/17 Time of Encounter: 10:00 Patient seen and evaluated by nocturnalist earlier this morning and also by myself. Patient is an 87-year-old female with past medical history significant for chronic kidney disease stage III, anemia, hypertension and Parkinsons disease who presented due to chest pain/shortness of breath. Patient currently asymptomatic and is breathing comfortably on 2 L of nasal cannula. Cardiac biomarkers negative and VQ scan pending. Will monitor patient on telemetry with pulse oximetry overnight.
[2017-12-19] MEDS ORDERED: Famotidine 20 MG/2 ML VIAL IVP ONE (20:09)
[2017-12-19] MEDS ORDERED: Primidone 50 MG TABLET PO SCH (21:00)
[2017-12-20] MEDS: Gabapentin 300 MG CAPSULE PO SCH (09:05)
[2017-12-20] MEDS: Cholecalciferol (D-3) 1,000 UNIT TABLET PO SCH (09:06)
[2017-12-20] MEDS: Carbidopa/Levodopa 25/100 TABLET PO SCH ×2 (09:06→13:33)
[2017-12-20] MEDS: Folic Acid 1 MG TABLET PO SCH (09:06)
[2017-12-20 10:45] LABS: Basophils % 0.2 %; Eosinophils # 0.5 K/mcL (0.0-0.6); Eosinophils % 10.1 %; Hematocrit 28.1 % (35.3-44.9); Hemoglobin 9.2 g/dL (11.5-15.4); Lymphocytes # 1.1 K/mcL (0.6-4.6); Lymphocytes % 21.7 %; Mean Corpuscular HGB Conc 32.7 g/dL (31.6-35.5); Mean Corpuscular Volume 91.5 fL (83.0-100.0); Monocytes # 0.2 K/mcL (0.0-1.3); Neutrophils # 3.1 K/mcL (1.6-8.9); Platelet Count 139 K/mcL (140-400); Red Blood Count 3.07 M/mcL (3.82-4.97); Red Cell Distribution Width 16.6 % (11.5-14.5)
[2017-12-20 11:06] LABS: Calcium 8.1 mg/dL (8.6-10.3); Potassium 3.9 mEq/L (3.5-5.1)
[2017-12-20 11:31] VITALS: BP 114/66
[2017-12-20] MEDS ORDERED: hydrOXYzine pamoate 25 MG CAPSULE PO ONE (13:14)
--- NOTE | 2017-12-20 14:22 | Discharge Summary ---
- NOTES TO OUTPATIENT PROVIDER Notes to Outpatient Provider: Follow-up with primary care provider Date of Encounter: 12/20/17 Time of Encounter: 11:00 - Discharge Diagnosis (1) UTI (urinary tract infection) Priority: Secondary Status: Ruled-out Qualifiers: Urinary tract infection type: site unspecified Hematuria presence: without hematuria Qualified Code(s): N39.0 - Urinary tract infection, site not specified (2) Anemia Priority: Secondary Status: Chronic Qualifiers: Anemia type: unspecified type Qualified Code(s): D64.9 - Anemia, unspecified (3) Parkinsons disease Priority: Secondary Status: Chronic (4) HTN (hypertension) Priority: Secondary Status: Chronic Qualifiers: Hypertension type: essential hypertension Qualified Code(s): I10 - Essential (primary) hypertension (5) CKD (chronic kidney disease) stage 3, GFR 30-59 ml/min Priority: Secondary Status: Chronic (6) Chest pain Priority: Primary Status: Acute Qualifiers: Chest pain type: unspecified Qualified Code(s): R07.9 - Chest pain, unspecified Hospital course: Patient is a 70-year-old female with past medical history significant for CVA, hypertension, mood disorder and Parkinsons disease who presented from [facility] due to [facility] ER due to concerns for pulmonary embolism rule out. Patient presented with complaints of shortness of breath and substernal chest pain which have been occurring approximately 2 days prior to admission. At [facility], patient was found to have an elevated d-dimer but the facility was able to do a CT PA so she was transferred to [facility] for further evaluation. During patients hospital stay her symptoms improved. VQ scan showed low probability for pulmonary embolism and without any focal consolidation or pleural effusion. Patients cardiac biomarkers were negative as well. Patient will be discharged to follow up with primary care practitioner outpatient. - Time Spent with Patient Total time spent providing and/or coordinating discharge services: Less than 30 minutes - Discharge Medications Home Medications: Carbidopa/Levodopa 25/100 [Sinemet 25/100] 1 each PO TID 02/17/16 [History] Raloxifene [Evista] 60 mg PO DAILY 02/17/16 [History] Buspirone HCl [Buspar] 10 mg PO BID 09/01/17 [History] Cranberry 500 mg PO DAILY 09/01/17 [History] Primidone [Mysoline] 50 mg PO HS 09/01/17 [History] Sertraline [Zoloft] 100 mg PO DAILY 09/01/17 [History] Acetaminophen [Tylenol] 650 mg PO Q6HR PRN tablet 09/04/17 [Rx] Gabapentin [Neurontin] 300 mg PO BID 3 Days #6 capsule 09/04/17 [Rx] B12/Levomefolate Calcium/B-6 [Foltx Tablet] 1 each PO DAILY 09/17/17 [History] Ferrous Sulfate 325 mg PO DAILY@0630 tablet 09/18/17 [Rx] Cholecalciferol (Vitamin D3) [Vitamin D3] 2,000 unit PO DAILY 12/18/17 [History] Folic Acid 1 mg PO DAILY 12/18/17 [History] Furosemide [Lasix] 20 - 40 mg PO DAILY 12/18/17 [History] Ipratropium/Albuterol Neb [Duoneb] 3 ml IH Q6HR 12/18/17 [History] Losartan Potassium [Cozaar] 50 mg PO DAILY 12/18/17 [History] Potassium Chloride [K-Tab ER] 10 meq PO DAILY 12/18/17 [History] Tramadol HCl [Ultram] 50 mg PO QID PRN 12/19/17 [History] hydrOXYzine HCl [Hydroxyzine HCl] 25 mg PO Q8H PRN 12/19/17 [History] Allergies/Adverse Reactions: 3 Allergy/AdvReac Type Severity Reaction Status Date / Time clarithromycin Allergy Unknown See Verified 12/18/17 22:20 Comments propoxyphene [From Darvon] Allergy Hives Verified 12/18/17 22:20 aspirin [ASA] AdvReac Heartburn Verified 12/18/17 22:20 cephalexin [From Keflex] AdvReac Hives Verified 12/18/17 22:20 dextran 40 AdvReac Rash Verified 12/18/17 22:20 diphenhydramine AdvReac See Verified 12/18/17 22:20 [From Benadryl] Comments fluoxetine [From Prozac] AdvReac Numbness Verified 12/18/17 22:20 guaifenesin [From Humibid] AdvReac Hives Verified 12/18/17 22:20 Date of admission: 12/19/17 02:08 Primary care physician: Juan Carlos Hurst DO - Constitutional Vitals: Temp Pulse Resp BP Pulse Ox 97.6 F 68 17 114/66 97 12/20/17 11:00 12/20/17 11:00 12/20/17 11:00 12/20/17 11:00 12/20/17 11:00 Exam: Gen.: Nonacute distress, alert and oriented 3 Skin: Normal color - Patient Status Disposition: Home, Self-Care Condition: Good - Discharge Instructions Follow Up With: Juan Carlos Hurst DO [Primary Care Provider] - (Unable to schedule follow up appointment due to office being closed on weekend. Please call thursday to schedule appointment for 7-10 days from date of discharge. )
--- NOTE | 2017-12-22 17:56 | Electrocardiograph Report ---
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
== END 2017-12-20 15:37 | disposition home or self-care (01) ==
LOC: 3BNU 21:42 → EMEROOARM 21:42 → SUATTDRO 12-19 02:08 → 3BNU 12-19 02:45
PROVIDERS: ADMIT Internal Medicine; ATTEND Hospitalist